=== PATIENT | male | born 1990 | race Asian ===

== ENCOUNTER 2016-04-03 18:13 | Emergency (ER) | payer SELFPAY ==
[~2016-04-03] VITALS: Ht 162.6 cm; Wt 56.7 kg
[2016-04-03 18:36] VITALS: BP 139/92
[2016-04-03 19:13] LABS: BASOPHILS % (AUTO) 1.4 % (0.0-2.0); EOSINOPHILS % (AUTO) 0.7 % (0.0-3.0); LYMPHOCYTES % (AUTO) 25.5 % (20.0-45.0); MEAN CORPUSCULAR HEMOGLOBIN 31.5 PG (27.0-31.0); MEAN CORPUSCULAR HGB CONC 32.5 G/DL (32.0-36.0); MEAN CORPUSCULAR VOLUME 97 FL (80-99); MEAN PLATELET VOLUME 5.1 FL (6.5-10.1); MONOCYTES % (AUTO) 8.5 % (1.0-10.0); NEUTROPHILS % (AUTO) 63.9 % (45.0-75.0); PLATELET COUNT 349 K/UL (150-450); RED BLOOD COUNT 5.11 M/UL (4.70-6.10); RED CELL DISTRIBUTION WIDTH 12.9 % (11.6-14.8); WHITE BLOOD COUNT 8.7 K/UL (4.8-10.8)
[2016-04-03 19:20] LABS: ACETAMINOPHEN < 10 ug/mL (10-30); ALANINE AMINOTRANSFERASE 35 U/L (3-41); ALBUMIN/GLOBULIN RATIO 1.3 (1.0-2.7); ANION GAP 20 (5-15); ASPARTATE AMINO TRANSFERASE 49 U/L (5-40); CALCIUM 9.1 mg/dL (8.6-10.2); CARBON DIOXIDE 24 mEQ/L (20-30); CHLORIDE 99 mEQ/L (98-107); CREATININE 0.7 mg/dL (0.7-1.2); GLOMERULAR FILTRATION RATE > 60 mL/min (>60); HEMOLYSIS 16; SODIUM 143 mEQ/L (135-145); TOTAL PROTEIN 7.9 g/dL (6.6-8.7)
[2016-04-03 19:25] LABS: ALCOHOL > 476 mg/dL
--- NOTE | 2016-04-03 19:44 | Emergency Room Report ---
History of Present Illness General Chief Complaint: Alcohol Intoxication Source: EMS Present Illness HPI Pt. presents to the ED with ALOC, only responsive to sternal rub. hx of alcoholism per family. obvious signs of trauma to the right side of head w. contusion. Per family at bedside pt. takes naltrexone for alcoholism, and she found him on floor in his office at home with wine bottle near by, no other bottles, no hx of SI. HPI and ROS are limited due to pt. mental status. Allergies: Coded Allergies: UNABLE TO ASSESS (Unverified , 04/03/16) Patient History Limited by: other - mental status/ intoxicated Past Medical History: see triage record, other - alcoholism Past Surgical History: none Pertinent Family History: none Reviewed Nursing Documentation: PMH: Agreed, PSxH: Agreed Nursing Documentation-PMH Past Medical History: No History, Except For History Of Psychiatric Problem: Yes - DEPRESSION, ETOH ABUSE Review of Systems All Other Systems: negative except mentioned in HPI Physical Exam Vital Signs Date Time Temp Pulse Resp B/P Pulse Ox O2 Delivery O2 Flow Rate FiO2 04/03/16 18:02 109 16 136/91 99 Room Air Sp02 EP Interpretation: reviewed, normal General Appearance: lethargic Eyes: bilateral eye PERRL ENT: normal ENT inspection, TMs + canals normal Respiratory: chest non-tender, lungs clear, normal breath sounds, no rhonchi, no respiratory distress, no retraction, no accessory muscle use, no wheezing, speaking full sentences Cardiovascular #1: regular rate, rhythm, no edema, normal capillary refill Cardiovascular #2: 3+ radial (R), 3+ radial (L), 3+ dorsalis pedis (R), 3+ dorsalis pedis (L) Gastrointestinal: normal bowel sounds, non tender, no mass, no organomegaly, no bruit, non-distended, no guarding Skin: normal color, no rash, warm/dry, well hydrated Medical Decision Making PA Attestation Dr. Ordaz is my supervising Physician whom patient management has been discussed with. Diagnostic Impression: Primary Impression: Acute alcoholic intoxication Qualified Codes: F10.120 - Alcohol abuse with intoxication, uncomplicated ER Course Pt. presents to the ED with ALOC, only responsive to sternal rub. hx of alcoholism per family. obvious signs of trauma to the right side of head w. contusion Ddx considered but are not limited to ETOH, Trauma, Syncope, dementia, OD Vital signs: are WNL, pt. is afebrile H&PE are most consistent with ETOH abuse ORDERS: -CBC: unremarkable -CMP: elevated AST -Lipase: 66 WNL - Serum ETOH: 476 - Salicylates: WNL - Tylenol: WNL UDS: Negative -CT head No contrast: No evidence of acute fracture, hemorrhage, or intracranial process Per: Official radiology report. ED INTERVENTIONS: -1000 NS Bolus -100mg Thiamine - Observance while he detoxifies. Pt. was allowed to sleep/rest. PT. became awake and alert x 3 , Pt is clinically sober, and has family bedside willing to drive him home and continue observance. DISCHARGE: At this time pt. is stable for d/c to home. Will provide printed patient care instructions, and any necessary prescriptions. Care plan and follow up instructions have been discussed with the patient prior to discharge. Labs Test 04/03/16 18:50 04/03/16 20:30 White Blood Count 8.7 K/UL (4.8-10.8) Red Blood Count 5.11 M/UL (4.70-6.10) Hemoglobin 16.1 G/DL (14.2-18.0) Hematocrit 49.6 % (42.0-52.0) Mean Corpuscular Volume 97 FL (80-99) Mean Corpuscular Hemoglobin 31.5 PG (27.0-31.0) Mean Corpuscular Hemoglobin Concent 32.5 G/DL (32.0-36.0) Red Cell Distribution Width 12.9 % (11.6-14.8) Platelet Count 349 K/UL (150-450) Mean Platelet Volume 5.1 FL (6.5-10.1) Neutrophils (%) (Auto) 63.9 % (45.0-75.0) Lymphocytes (%) (Auto) 25.5 % (20.0-45.0) Monocytes (%) (Auto) 8.5 % (1.0-10.0) Eosinophils (%) (Auto) 0.7 % (0.0-3.0) Basophils (%) (Auto) 1.4 % (0.0-2.0) Sodium Level 143 mEQ/L (135-145) Potassium Level 4.0 mEQ/L (3.4-4.9) Chloride Level 99 mEQ/L (98-107) Carbon Dioxide Level 24 mEQ/L (20-30) Anion Gap 20 (5-15) Blood Urea Nitrogen 5 mg/dL (7-23) Creatinine 0.7 mg/dL (0.7-1.2) Estimat Glomerular Filtration Rate > 60 mL/min (>60) Glucose Level 102 mg/dL (74-106) Calcium Level 9.1 mg/dL (8.6-10.2) Total Bilirubin 0.3 mg/dL (0.0-1.2) Aspartate Amino Transf (AST/SGOT) 49 U/L (5-40) Alanine Aminotransferase (ALT/SGPT) 35 U/L (3-41) Alkaline Phosphatase 52 U/L (40-129) Total Protein 7.9 g/dL (6.6-8.7) Albumin 4.5 g/dL (3.5-5.2) Globulin 3.4 g/dL Albumin/Globulin Ratio 1.3 (1.0-2.7) Lipase 66 U/L (< 60) Salicylates Level < 1 mg/dL (10-30) Acetaminophen Level < 10 ug/mL (10-30) Serum Alcohol > 476 mg/dL Last Vital Signs Date Time Temp Pulse Resp B/P Pulse Ox O2 Delivery O2 Flow Rate FiO2 04/03/16 18:36 104 15 139/92 98 Room Air Disposition: HOME, SELF-CARE Condition: Stable Patient Instructions: Alcohol Abuse and Nutrition, Alcohol Use Disorder, Alcohol Intoxication, [id number] Additional Instructions: Take previously prescribed medications as directed. Follow up with PCP in 48 hours Return sooner to ED if new symptoms occur, or current symptoms become worse. Do not drink alcohol Payal Lomeli Apr 03, 2016 19:44
[2016-04-03] MEDS ORDERED: Thiamine HCl 100 MG in D5W 50 ML IVPB SCH (20:00)
[2016-04-03 21:13] VITALS: BP 138/89
[2016-04-03] MEDS ORDERED: Thiamine HCl 100mg/ml Inj ONE (21:27)
[2016-04-03] MEDS ORDERED: Thiamine HCl 100 MG in D5W 50 ML IVPB ONE (21:45)
[2016-04-03 22:25] VITALS: BP 138/89
--- NOTE | 2016-04-10 10:29 | Diagnostic Imaging Report ---
Indication: Altered level of consciousness Technique: Continuous helical CT scanning of the head was performed without intravenous contrast material. Axial and coronal 5 mm sections were generated. Radiation dose was minimized using automated exposure control Dose: Total Dose Length Product - DLP [address] Dose Index - CTDIvol(s) 70.38 mGy. Comparison: None Findings: The ventricular system is normal in size and configuration. There is no shift of midline structures. No abnormal extra-axial fluid collections are noted. There is no evidence of intracerebral bleeding. No other abnormal high or low density areas are noted within the brain. Impression: Normal CT scan of the head without contrast material. This agrees with the preliminary interpretation provided overnight by [facility] teleradiology service. The CT scanner at [facility] is accredited by the [employer] and the scans are performed using protocols designed to limit radiation exposure to as low as reasonably achievable to attain images of sufficient resolution adequate for diagnostic evaluation.
[2016-06-16] MEDS ORDERED: BUSPAR10 MG ORAL (20:51)
[2016-06-16] MEDS ORDERED: VENLAFAXINE HCL25 MG ORAL (20:51)
[2016-06-16] MEDS ORDERED: GABAPENTIN100 MG ORAL (20:51)
== END 2016-04-03 22:25 | disposition home or self-care (01) ==
LOC: EDBD 18:13 → EMR 22:20
DX: F10.129 Alcohol abuse with intoxication, unspecified (principal); F32.9 Major depressive disorder, single episode, unspecified; S00.93XA Contusion of unspecified part of head, initial encounter; W19.XXXA Unspecified fall, initial encounter; Y92.018 Other place in single-family (private) house as the place of occurrence of the external cause; R41.82 Altered mental status, unspecified
CPT/HCPCS: 36415; 70450; 80053; 80300; 83690; 85025; 96374; 99284; G0480; 80329

== ENCOUNTER 2016-06-16 20:53 | Inpatient (IN) | payer BC ==
[~2016-06-16] VITALS: Ht 165.1 cm; Wt 59.0 kg
[~2016-06-16 20:53] MED LIST: BUSPAR10 MG ORAL; GABAPENTIN100 MG ORAL; VENLAFAXINE HCL25 MG ORAL
[2016-06-16] MEDS ORDERED: Thiamine HCl 100 MG in D5W 55 ML IVPB SCH (21:00)
[2016-06-16] MEDS ORDERED: LORazepam Inj 2mg/ml 1ml IV ONE ×2 (21:00→22:00)
--- NOTE | 2016-06-16 21:00 | Emergency Room Report ---
History of Present Illness General Chief Complaint: Seizure Source: Patient, Family Member, EMS Present Illness HPI Patient presents after having a seizure. He is in withdrawal from alcohol. He says it appeared last night but also claimed to be sober since April. He is given a seizure before. Denies any headache or body pain at this time. He does have the shakes. Accu-Chek in the field was normal. He reports sobriety but mother states he was drinking whiskey yesterday. No NVD. No vomit blood, melena. Tremor and weakness. Bit tongue. Also has swelling R side of face. States prior AA but sponsor relapsed. No recent AA. Patient also c/o depression. Denies SI to me. Mother states he is severely depressed. Allergies: Coded Allergies: No Known Allergies (Unverified , 06/16/16) UNABLE TO ASSESS (Unverified , 04/03/16) Patient History Past Medical History: see triage record Social History: Reports: alcohol use Social History Narrative with Mother Reviewed Nursing Documentation: PMH: Agreed, PSxH: Agreed Nursing Documentation-PMH Past Medical History: No History, Except For Review of Systems All Other Systems: negative except mentioned in HPI Physical Exam Vital Signs Date Time Temp Pulse Resp B/P Pulse Ox O2 Delivery O2 Flow Rate FiO2 06/16/16 20:45 99.3 141 16 160/100 100 Room Air Sp02 EP Interpretation: reviewed, normal General Appearance: no apparent distress, GCS 15, thin, other - weak and tremulous, Chronically Ill Head: normocephalic, atraumatic Eyes: bilateral eye PERRL, bilateral eye Scleral Injection ENT: moist mucus membranes - tongue maceration L, other - parotid swelling R with some tenderness Neck: supple Respiratory: chest non-tender, lungs clear, normal breath sounds Cardiovascular #1: regular rate, rhythm Cardiovascular #2: 2+ radial (R) Gastrointestinal: normal inspection, normal bowel sounds, non tender, no mass, non-distended Musculoskeletal: back normal, gait/station normal, normal range of motion Neurologic: alert, oriented x3, DTRs symmetric, sensory intact, cerebellar normal, speech normal, motor weakness - but more generalized with tremor Psychiatric: anxious Skin: normal inspection, warm/dry, other - plethoric Medical Decision Making Diagnostic Impression: Primary Impression: New onset seizure Additional Impressions: Alcohol withdrawal Qualified Codes: F10.239 - Alcohol dependence with withdrawal, unspecified Depression Qualified Codes: F32.9 - Major depressive disorder, single episode, unspecified ER Course Patient presents with new onset seizure and h/o alcohol abuse. Ddx: withdrawal seizure, withdrawal syndrome, electrolyte imbalance, bleed amongst others. Patient appears withdrawing at this time and needs both evaluation for seizure and alcohol withdrawal, possible early DTs. Labs, EKG, CXR, CT ordered. IV hydration, thiamine, ativan ordered. After the patient received Ativan he had a second seizure. This generalized tonoclonic. In short postictal period. Because of this the patient was loaded with a febrile and the patient will be admitted for observation and further evaluation by neurologist. Still with weakness, hardly able to sit on gurney on own - very tremulous. Concern over risk of DTs. Patient not reliable historian regarding alcohol intake. Admit tele Dr. Quigley. Still tachycardic. Second bolus given and more ativan. Tylenol given for some throat pain. Patient improved with second dose of ativan also improved with tylenol. Laboratory Tests Test 06/16/16 21:34 06/17/16 01:50 White Blood Count 4.8 K/UL (4.8-10.8) Red Blood Count 3.95 M/UL (4.70-6.10) L Hemoglobin 12.4 G/DL (14.2-18.0) L Hematocrit 37.6 % (42.0-52.0) L Mean Corpuscular Volume 95 FL (80-99) Mean Corpuscular Hemoglobin 31.3 PG (27.0-31.0) H Mean Corpuscular Hemoglobin Concent 33.0 G/DL (32.0-36.0) Red Cell Distribution Width 15.6 % (11.6-14.8) H Platelet Count 125 K/UL (150-450) L Mean Platelet Volume 6.2 FL (6.5-10.1) L Neutrophils (%) (Auto) 71.1 % (45.0-75.0) Lymphocytes (%) (Auto) 8.8 % (20.0-45.0) L Monocytes (%) (Auto) 17.1 % (1.0-10.0) H Eosinophils (%) (Auto) 0.2 % (0.0-3.0) Basophils (%) (Auto) 2.7 % (0.0-2.0) H Sodium Level 131 mEQ/L (135-145) L Potassium Level 4.0 mEQ/L (3.4-4.9) Chloride Level 84 mEQ/L (98-107) L Carbon Dioxide Level 22 mEQ/L (20-30) Anion Gap 25 (5-15) H Blood Urea Nitrogen 7 mg/dL (7-23) Creatinine 0.8 mg/dL (0.7-1.2) Estimate Glomerular Filtration Rate > 60 mL/min (>60) Glucose Level 104 mg/dL (74-106) Calcium Level 10.4 mg/dL (8.6-10.2) H Total Bilirubin 0.8 mg/dL (0.0-1.2) Aspartate Amino Transferase (AST) 106 U/L (5-40) H Alanine Aminotransferase (ALT) 133 U/L (3-41) H Alkaline Phosphatase 56 U/L (40-129) Total Creatine Kinase 238 U/L (38-174) H Total Protein 7.8 g/dL (6.6-8.7) Albumin 4.9 g/dL (3.5-5.2) Globulin 2.9 g/dL Albumin/Globulin Ratio 1.6 (1.0-2.7) Acetaminophen Level < 10 ug/mL (10-30) L Serum Alcohol < 10 mg/dL Urine Color Pale yellow Urine Appearance Clear Urine pH 8 (4.5-8.0) Urine Specific [place] 1.010 (1.005-1.035) Urine Protein 2+ (NEGATIVE) H Urine Glucose (UA) Negative (NEGATIVE) Urine Ketones Negative (NEGATIVE) Urine Occult Blood 4+ (NEGATIVE) H Urine Nitrite Negative (NEGATIVE) Urine Bilirubin Negative (NEGATIVE) Urine Urobilinogen Normal MG/DL (0.0-1.0) Urine Leukocyte Esterase Negative (NEGATIVE) Urine RBC 0-2 /HPF (0 - 0) H Urine WBC 0-2 /HPF (0 - 0) Urine Squamous Epithelial Cells Occasional /LPF Urine Bacteria Occasional /HPF (NONE) Urine Opiates Screen Negative (NEGATIVE) Urine Barbiturates Screen Negative (NEGATIVE) Phencyclidine (PCP) Screen Negative (NEGATIVE) Urine Amphetamines Screen Negative (NEGATIVE) Urine Benzodiazepines Screen Negative (NEGATIVE) Urine Cocaine Screen Negative (NEGATIVE) Urine Marijuana (THC) Screen Negative (NEGATIVE) EKG Diagnostic Results Rate: tachycardiac ST Segments: no acute changes Rhythm Strip Diag. Results EP Interpretation: yes Rhythm: no PVC's, no ectopy, other - ST 137 Chest X-Ray Diagnostic Results EP Interpretation: Yes Findings: no consolidation, no effusion, no pneumothorax Number of Views: 1 CT/MRI/US Diagnostic Results CT/MRI/US Diagnostic Results : Imaging Test Ordered: head Impression nl brain, bones and ST Last Vital Signs Date Time Temp Pulse Resp B/P Pulse Ox O2 Delivery O2 Flow Rate FiO2 06/17/16 01:46 123 19 137/92 97 Room Air 06/16/16 22:41 99.1 Status: improved Disposition: ADMITTED INPATIENT Condition: Serious Som Padron M.D. Jun 16, 2016 21:00
[2016-06-16] MEDS ORDERED: Thiamine HCl 100mg/ml Inj ONE (21:42)
[2016-06-16] MEDS ORDERED: levETIRAcetam 500 MG in D5W 110 ML IVPB ONE (22:00)
[2016-06-16 22:02] LABS: ACETAMINOPHEN < 10 ug/mL (10-30); ALANINE AMINOTRANSFERASE 133 U/L (3-41); ALBUMIN/GLOBULIN RATIO 1.6 (1.0-2.7); ALCOHOL < 10 mg/dL; ANION GAP 25 (5-15); ASPARTATE AMINO TRANSFERASE 106 U/L (5-40); CALCIUM 10.4 mg/dL (8.6-10.2); CARBON DIOXIDE 22 mEQ/L (20-30); CHLORIDE 84 mEQ/L (98-107); CREATININE 0.8 mg/dL (0.7-1.2); GLOMERULAR FILTRATION RATE > 60 mL/min (>60); HEMOLYSIS 4; SODIUM 131 mEQ/L (135-145); TOTAL PROTEIN 7.8 g/dL (6.6-8.7)
[2016-06-16 22:10] LABS: BASOPHILS % (AUTO) 2.7 % (0.0-2.0); EOSINOPHILS % (AUTO) 0.2 % (0.0-3.0); LYMPHOCYTES % (AUTO) 8.8 % (20.0-45.0); MEAN CORPUSCULAR HEMOGLOBIN 31.3 PG (27.0-31.0); MEAN CORPUSCULAR VOLUME 95 FL (80-99); MEAN PLATELET VOLUME 6.2 FL (6.5-10.1); MONOCYTES % (AUTO) 17.1 % (1.0-10.0); NEUTROPHILS % (AUTO) 71.1 % (45.0-75.0); PLATELET COUNT 125 K/UL (150-450); RED BLOOD COUNT 3.95 M/UL (4.70-6.10); RED CELL DISTRIBUTION WIDTH 15.6 % (11.6-14.8); WHITE BLOOD COUNT 4.8 K/UL (4.8-10.8)
[2016-06-16] MEDS ORDERED: levETIRAcetam 500mg vial IV ONE (22:23)
[2016-06-16 22:41] VITALS: BP 154/98
[2016-06-16 23:23] VITALS: BP 150/87
[2016-06-17] VITALS (8 sets, daily range): BP systolic 126–159; BP diastolic 81–107
[2016-06-17 02:07] LABS: APPEARANCE,URINE CLEAR; KETONES,URINE NEGATIVE (NEGATIVE); LEUKOCYTE ESTERASE ,URINE NEGATIVE (NEGATIVE); NITRITE,URINE NEGATIVE (NEGATIVE); PH,URINE 8 (4.5-8.0); PROTEIN,URINE 2+ (NEGATIVE); UROBILINOGEN,URINE NORMAL MG/DL (0.0-1.0)
[2016-06-17 03:28] LABS: BACTERIA,URINE OCCASIONAL /HPF; RBC,URINE 0-2 /HPF (0 - 0); SQUAMOUS EPITHELIAL CELL,UR OCCASIONAL /LPF (NONE/OCC); WBC,URINE 0-2 /HPF (0 - 0)
[2016-06-17] MEDS ORDERED: LORazepam Inj 2mg/ml 1ml IV ONE (04:30)
--- NOTE | 2016-06-17 09:08 | Diagnostic Imaging Report ---
Indication: Seizure Technique: Continuous helical CT scanning of the head was performed without intravenous contrast material. Axial and coronal 5 mm sections were generated. Radiation dose was minimized using automated exposure control Dose: Total Dose Length Product - DLP [address] Dose Index - CTDIvol(s) 70 mGy. Comparison: 04/03/2016 Findings: The ventricular system is normal in size and configuration. There is no shift of midline structures. No abnormal extra-axial fluid collections are noted. There is no evidence of intracerebral bleeding. No other abnormal high or low density areas are noted within the brain. Patent cavum septum pellucidum. No significant interim change Impression: Normal CT scan of the head without contrast material. This agrees with the preliminary interpretation provided overnight by Dr. Underwood The CT scanner at [facility] is accredited by the [employer] and the scans are performed using protocols designed to limit radiation exposure to as low as reasonably achievable to attain images of sufficient resolution adequate for diagnostic evaluation.
--- NOTE | 2016-06-17 11:58 | Diagnostic Imaging Report ---
Indication: Chest pain Technique: One view of the chest Comparison: none Findings: Lungs and pleural spaces are clear. Heart size is normal. Impression: No acute process
[2016-06-17] MEDS ORDERED: Miralax 17gm pkt ORAL PRN (14:00)
[2016-06-17] MEDS ORDERED: Milk of Magnesia 30ml Ud ORAL PRN (14:00)
[2016-06-17] MEDS ORDERED: LORazepam Inj 2mg/ml 1ml IV PRN ×2 (14:00→18:00)
--- NOTE | 2016-06-17 14:53 | History & Physical ---
History and Physical History & Physicial Dictated for Int Med-Dr Quigley no. [id number]. LORI RAMIREZ Jun 17, 2016 14:53
--- NOTE | 2016-06-17 15:01 | Consultation ---
Consult Note Consult Note NEUROLOGY CONSULTATION: Full note dictated #[id number] 26 y/o, RH, EI M who has had depression since his teens and has been using alcohol since he was in his early 20s. Was drinking 750 ml of Whiskey daily for weeks. On 06/15/16 had his last drink. Then started to feel tremulous and had a feeling he was withdrawing. On 06/16/16 was noted to have a GTC seizure Was brought to [facility] by paramedics and had a second GTC seizure in ER. ON EXAM: Normal except for swollen right cheek, bitten tongue and globally diminished reflexes. CT of brain Normal. IMPRESSION: Alcohol withdrawal seizures. Alcohol withdrawal syndrome with tremulousness, diaphoresis, and anxiety. Depression. REC: Rx of alcohol withdrawal as per Drs. Radford & Dann EEG No anticonvulsant at this time. Observe in hospital. Genie Davies M.D., M.S.P.[place]renna. GENIE DAVIES Jun 17, 2016 15:01
[2016-06-17] MEDS: D5 1/2NS w/KCl 20mEq 1,000 ML IV SCH (16:27)
[2016-06-17] MEDS ORDERED: Venlafaxine 25mg tab ORAL SCH ×2 (18:00)
[2016-06-17] MEDS: BusPIRone 10mg Tab ORAL SCH (19:15)
[2016-06-17] MEDS: Venlafaxine XR 75mg cap ORAL SCH (20:48)
--- NOTE | 2016-06-17 20:48 | History and Physical Report ---
DATE OF ADMISSION: 06/16/2016 CHIEF COMPLAINT: The patient is a 26-year-old male who presents with chief complaint of seizure. HISTORY OF PRESENT ILLNESS: The patient has a history of alcohol dependence. The patient states he has never had a seizure before. The patient was admitted to rehabilitation in [place] in 2013. The patient states his longest sobriety was three months. The patient currently drinks one 750 mL bottle of whiskey daily. The patient last drank on June 16, 2016. The patient stopped drinking abruptly on June 16. The patient suffered a witnessed seizure by his mother. The patient was transported to [facility] via EMS. The patient had another seizure while in the emergency room. The patient was admitted for new-onset seizures to rule out seizure disorder versus alcohol withdrawal seizure. REVIEW OF SYSTEMS: Constitutional: The patient denies weight loss or weight gain. The patient denies fevers or chills. HEENT: The patient denies ear or throat pain. Cardiovascular: The patient denies palpitations or chest pain. Chest: The patient denies wheeze or shortness of breath. Abdomen: The patient denies nausea, vomiting, diarrhea, or constipation. Genitourinary: The patient denies dysuria or increased frequency of urination. Neuromuscular: The patient complains of seizure as above. The patient denies generalized weakness. PAST MEDICAL HISTORY: Significant for, 1. Depression. 2. Anxiety. PAST SURGICAL HISTORY: The patient denies. CURRENT MEDICATIONS: Effexor 225 mg one tablet p.o. daily and buspirone 15 mg one tablet p.o. three times daily. 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 The patient admits to tobacco use one-half pack per day. The patient admits to alcohol use as above. The patient denies other drug abuse. PHYSICAL EXAMINATION: VITAL SIGNS: Temperature 99.1, respirations 13, pulse 88, and blood pressure 137/87. GENERAL: The patient is a well-developed and well-nourished, thin appearing male, who is extremely tremulous. HEENT: Eyes, pupils are equal and responsive to light and accommodation. Extraocular movements are intact. The patient does have notable nystagmus. CARDIOVASCULAR: Tachycardic, regular rhythm. S1 and S2 normal without murmurs, rubs, or gallops. CHEST: Lungs are clear to auscultation bilaterally without wheezes or rales. ABDOMEN: Soft, nontender, and nondistended. Positive bowel sounds. No evidence of hepatosplenomegaly. Currently, no rebound or guarding. EXTREMITIES: Negative for clubbing, cyanosis, or edema. RECTAL/GENITAL: Refused. NEUROLOGICAL: The patient has tremors as above. The patient is diaphoretic. Deep tendon reflexes are 2+ plantar. LABORATORY STUDIES: WBC 4.8, hemoglobin 12.4, hematocrit 37.6, and platelets 125,000. Sodium 131, potassium 4.0, chloride 84, CO2 22, BUN 7, and creatinine 0.8. Glucose 104. Liver function tests elevated with an AST of 106, ALT of 133. Total CPK elevated at 238. CT scan of the brain was reported as no acute bleed or infarct. Chest x-ray was within normal limits. An EKG demonstrated sinus tachycardia, approximately 135 beats per minute with no acute ST changes or Q-waves noted. ASSESSMENT: This is a 26-year-old male: 1. New-onset seizure. 2. Alcohol abuse. 3. Sinus tachycardia. 4. Elevated liver function tests. 5. Rhabdomyolysis. TREATMENT: 1. Seizure disorder. This is probably secondary to alcohol withdrawal seizure. Neurology consultation was obtained with Dr. Nasir Mayen. The patient has been started empirically on Neurontin 300 mg one tablet p.o. three times daily. 2. Alcohol abuse/withdrawal. The patient has been placed on a protocol using Valium and Neurontin for seizure precautions. This will be slowly tapered during hospitalization. 3. Sinus tachycardia. 4. Elevated liver function tests is probably secondary to chronic alcoholism. 5. Rhabdomyolysis is probably secondary to acute dehydration. The patient is currently receiving intravenous fluids. 6. Depression. Continue Effexor as above. 7. Anxiety. Continue BuSpar as above. Juan M Radford M.D. DR: SANGEETHA JOB#: [id number] CC:
--- NOTE | 2016-06-17 22:28 | Consultation ---
DATE OF CONSULTATION: 06/17/2016 NEUROLOGY CONSULTATION CONSULTING PHYSICIAN: Nasir Mayen M.D. REQUESTING PHYSICIANS: Lee Quigley M.D. & Juan M Radford M.D. HISTORY: Mr. Roman Hussein is a 26-year-old, right-handed, [place] gentleman of [place] origin, who has had depression since his teens and has been using alcohol liberally since he was in his early 20s. His latest bout of drinking started a few weeks ago and he has been drinking 750 mL of whiskey every day. He had his last drink on 06/15/2016 and later on that day he started to feel tremulous and was feeling that he was withdrawing. On 06/16/2016, he was noted to have a generalized tonic-clonic seizure by his mother. The paramedics were called in and he was brought into [facility] emergency room by paramedics. While in the emergency room, he had a second generalized tonic-clonic seizure. He has been seizure-free since then but feels quite anxious, tremulous and still feels that he is withdrawing from alcohol. He denies any weakness on one side or the other, numbness on one side or the other, problems with speech, problems with language, problems with vision, problems with memory, or any other neurological symptoms. He denies any prior history of seizures. He does however state that he has withdrawn from alcohol numerous times over the years. PAST MEDICAL HISTORY: Significant for depression for numerous years and alcoholism for numerous years. FAMILY HISTORY: His paternal grandfather was an alcoholic. There is no other family history of medical problems of seizures. PERSONAL HISTORY: Home: He lives alone in [place], but right now his mother is visiting from [place]. 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 Habits: He has been consuming large quantities of alcohol since he was in his early 20s. He also in the past used to use cannabinols. MEDICATIONS PRIOR TO ADMISSION: Present medications include Protonix, thiamine, folic acid, BuSpar, Neurontin, Effexor, lorazepam, Valium, Tylenol p.r.n., milk of magnesia p.r.n., MiraLax p.r.n., and Zofran p.r.n. He has also got 500 mg of Keppra in the emergency room. PHYSICAL EXAMINATION: GENERAL: He is a well-developed, well-nourished, [place] gentleman lying in bed, diaphoretic and tremulous. VITAL SIGNS: Pulse 101 per minute, blood pressure 137/81 mmHg, respirations 20 per minute, and temperature 98.4 degrees Fahrenheit. HEAD: Normocephalic and atraumatic. NECK: No neck rigidity was observed. EENT EXAMINATION: Benign except for a swollen right cheek. NEUROLOGICAL EXAMINATION: MENTAL STATUS EXAMINATION: He was alert and awake. He was oriented to person, place, and time. He was able to recall 3/3 words immediately after 1 minute and after 3 minutes. He was able to remember presidents Trump through Jayjay. His mathematical skills were good. His visuospatial function was preserved. SPEECH: He had no dysarthria. LANGUAGE: He had no aphasia. CRANIAL NERVE EXAMINATION: II: The visual blackmon were intact to confrontation testing. III, IV & : The external ocular movements were full and the pupils 3 mm in diameter, equal, round regular and reactive to light. V: He had normal facial sensations and the temporales, masseters, and pterygoids functioned normally. VII: He had normal facial expressions. He did have facial asymmetry related to swelling on the right side of the face. VIII: He was able to hear well bilaterally and had no nystagmus. IX: The palate moved symmetrically on phonation. X: He had no hoarseness of voice. XI: The sternocleidomastoids and trapezii functioned normally. XII: The tongue was in the midline without any fasciculations or atrophy, but he did have bite wick on his tongue. MOTOR SYSTEM: The tone was normal in all four extremities. Examination of muscle mass revealed no focal wasting. Examination of power revealed grade 5/5 power in all muscle groups tested. SENSORY EXAMINATION: He had intact sensations to pinprick, light touch, and graphesthesia. COORDINATION: He performed well on qpbwew-vs-vdbm and hjze-uk-jarc testing. Romberg test could not be performed because even with eyes open when he was made to stand with his feet together, he was quite unsteady. REFLEXES: 1+ and bilaterally symmetrical at the biceps, triceps, brachioradialis, and knees. Trace positive at both ankles. The plantar responses were flexor bilaterally. STANCE: He stood up with support on both sides. GAIT: He walked with support on both sides with a wide-based unsteady gait. ABNORMAL MOVEMENTS: Tremor (7-8 Hz): G 2/4 in both upper extremities. DIAGNOSTIC IMPRESSION: 1. Mr. Roman Hussein is a 26-year-old, right-handed, [place] gentleman of [place] origin, who does have a long history of anxiety and depression, and in addition has been abusing alcohol since he was in his early 20s. He was drinking 750 mL of whiskey daily for weeks and then stopped drinking on 06/15/2016. On 06/16/2016, he was noted to have a generalized tonic-clonic seizure. He was brought into the [facility] emergency room where he had a second generalized tonic-clonic seizure. He has also been tremulous, sweaty and had a feeling of being unwell at this point in time. 2. The neurological examination at this time is essentially normal but he does have a swollen right cheek, a bitten tongue and globally diminished reflexes. 3. The CT scan of the brain without contrast is normal. 4. Laboratory test revealed that he was mildly anemic with a hemoglobin of 12.4. His chemistry panel revealed an elevated CK at 238. His AST and ALT were both elevated. His toxicology screen was benign and his serum alcohol on admission was <10. His urinalysis was also benign. 5. The patient's history and neurological examination are most compatible with two alcohol-withdrawal seizures. 6. At this point in time, he is still withdrawing from alcohol, and has had an alcohol withdrawal syndrome, with tremulousness, diaphoresis and ongoing anxiety. 7. The patient does have a long history of depression, which is most probably compounding his alcoholism. RECOMMENDATIONS: 1. Agree with management thus far. 2. Treatment of alcohol withdrawal as per Dr. Radford and Dr. Quigley. 3. Aggressive treatment of depression. 4. An EEG will be ordered to evaluate the patient for a propensity to have seizures. 5. At this point in time, no antiseizure medicine will be started. 6. Depending on how the patient fares over the next day or so further recommendations will be given. Thank you for entrusting me with the care of Keenan Ko. I shall follow him with you. Nasir Mayen M.D., M.S.P.H. DR: LORA JOB#: [id number] MTDD
[2016-06-18 00:38] VITALS: BP 143/109
[2016-06-18] MEDS: D5 1/2NS w/KCl 20mEq 1,000 ML IV SCH ×4 (02:31→16:00)
[2016-06-18 04:14] VITALS: BP 135/97
[2016-06-18 08:00] VITALS: BP 154/95
[2016-06-18 08:25] LABS: EOSINOPHILS % (AUTO) 0.6 % (0.0-3.0); LYMPHOCYTES % (AUTO) 15.7 % (20.0-45.0); MEAN CORPUSCULAR HEMOGLOBIN 31.6 PG (27.0-31.0); MEAN CORPUSCULAR HGB CONC 33.3 G/DL (32.0-36.0); MEAN CORPUSCULAR VOLUME 95 FL (80-99); MEAN PLATELET VOLUME 8.2 FL (6.5-10.1); MONOCYTES % (AUTO) 15.1 % (1.0-10.0); NEUTROPHILS % (AUTO) 66.6 % (45.0-75.0); PLATELET COUNT 137 K/UL (150-450); RED BLOOD COUNT 4.59 M/UL (4.70-6.10); RED CELL DISTRIBUTION WIDTH 15.3 % (11.6-14.8)
[2016-06-18 08:37] LABS: PROTHROMBIN TIME 10.4 SEC (9.30-11.50)
[2016-06-18 08:56] LABS: ALANINE AMINOTRANSFERASE 123 U/L (3-41); ALBUMIN/GLOBULIN RATIO 1.6 (1.0-2.7); ANION GAP 23 (5-15); ASPARTATE AMINO TRANSFERASE 194 U/L (5-40); CALCIUM 9.4 mg/dL (8.6-10.2); CARBON DIOXIDE 19 mEQ/L (20-30); CHLORIDE 96 mEQ/L (98-107); CREATININE 0.7 mg/dL (0.7-1.2); GLOMERULAR FILTRATION RATE > 60 mL/min (>60); HEMOLYSIS 4; MAGNESIUM 2.1 mg/dL (1.7-2.5); POTASSIUM 3.5 mEQ/L (3.4-4.9); SODIUM 138 mEQ/L (135-145); TOTAL PROTEIN 7.7 g/dL (6.6-8.7)
[2016-06-18] MEDS: Thiamine 100mg tab ORAL SCH (09:06)
[2016-06-18] MEDS: Venlafaxine XR 75mg cap ORAL SCH (09:06)
[2016-06-18] MEDS: BusPIRone 10mg Tab ORAL SCH ×3 (09:07→18:00)
[2016-06-18 09:30] LABS: BILIRUBIN,DIRECT 0.2 mg/dL (0.1-0.3)
[2016-06-18] MEDS ORDERED: LORazepam Inj 2mg/ml 1ml IV ONE (10:00)
[2016-06-18] MEDS: chlordiazePOXIDE 25mg Cap ORAL SCH ×3 (11:00→11:53)
[2016-06-18 12:00] VITALS: BP 145/99
--- NOTE | 2016-06-18 14:58 | Neurology Progress Note ---
Interim History Interim History Interim History Mr. Jackson feels unwell. He is paranoid and delusional today. He is not very cooperative. He refused to talk to the psychiatrist. He is less tremulous. He is still sweaty. He denies any new neurologic symptoms. Review of Systems Neuro Review of Systems Benign. Objective Physical Exam Last Vital Signs Date Time Temp Pulse Resp B/P Pulse Ox O2 Delivery O2 Flow Rate FiO2 06/18/16 08:00 91 06/18/16 08:00 97.0 17 154/95 100 Room Air Laboratory Tests Test 06/18/16 05:25 White Blood Count 7.0 K/UL (4.8-10.8) Red Blood Count 4.59 M/UL (4.70-6.10) L Hemoglobin 14.5 G/DL (14.2-18.0) Hematocrit 43.6 % (42.0-52.0) Mean Corpuscular Volume 95 FL (80-99) Mean Corpuscular Hemoglobin 31.6 PG (27.0-31.0) H Mean Corpuscular Hemoglobin Concent 33.3 G/DL (32.0-36.0) Red Cell Distribution Width 15.3 % (11.6-14.8) H Platelet Count 137 K/UL (150-450) L Mean Platelet Volume 8.2 FL (6.5-10.1) Neutrophils (%) (Auto) 66.6 % (45.0-75.0) Lymphocytes (%) (Auto) 15.7 % (20.0-45.0) L Monocytes (%) (Auto) 15.1 % (1.0-10.0) H Eosinophils (%) (Auto) 0.6 % (0.0-3.0) Basophils (%) (Auto) 2.0 % (0.0-2.0) Prothrombin Time 10.4 SEC (9.30-11.50) Prothromb Time International Ratio 1.0 (0.9-1.1) Activated Partial Thromboplast Time 26 SEC (23-33) Sodium Level 138 mEQ/L (135-145) Potassium Level 3.5 mEQ/L (3.4-4.9) Chloride Level 96 mEQ/L (98-107) L Carbon Dioxide Level 19 mEQ/L (20-30) L Anion Gap 23 (5-15) H Blood Urea Nitrogen 5 mg/dL (7-23) L Creatinine 0.7 mg/dL (0.7-1.2) Estimat Glomerular Filtration Rate > 60 mL/min (>60) Glucose Level 86 mg/dL (74-106) Calcium Level 9.4 mg/dL (8.6-10.2) Phosphorus Level 2.0 mg/dL (2.5-4.8) L Magnesium Level 2.1 mg/dL (1.7-2.5) Total Bilirubin 1.3 mg/dL (0.0-1.2) H Direct Bilirubin 0.2 mg/dL (0.1-0.3) Aspartate Amino Transf (AST/SGOT) 194 U/L (5-40) H Alanine Aminotransferase (ALT/SGPT) 123 U/L (3-41) H Alkaline Phosphatase 56 U/L (40-129) Total Protein 7.7 g/dL (6.6-8.7) Albumin 4.8 g/dL (3.5-5.2) Globulin 2.9 g/dL Albumin/Globulin Ratio 1.6 (1.0-2.7) Neurologic Exam Objective PHYSICAL EXAMINATION: GENERAL: He is a well-developed, well-nourished, [place] gentleman sitting up at the edge of his bed, mild diaphoretic and mildly tremulous. HEAD: Normocephalic and atraumatic. NECK: No neck rigidity was observed. EENT EXAMINATION: Benign except for a swollen right cheek. NEUROLOGICAL EXAMINATION: MENTAL STATUS EXAMINATION: He was alert and awake. He was oriented to self and June 2016 only. He did not cooperate for further mental status tests. He was severely paranoid and delusional. SPEECH: He had no dysarthria. LANGUAGE: He had no aphasia. CRANIAL NERVE EXAMINATION: II: The visual blackmon were intact to confrontation testing. III, IV & : The external ocular movements were full and the pupils 3 mm in diameter, equal, round regular and reactive to light. V: He had normal facial sensations and the temporales, masseters, and pterygoids functioned normally. VII: He had normal facial expressions. He did have facial asymmetry related to swelling on the right side of the face. VIII: He was able to hear well bilaterally and had no nystagmus. IX: The palate moved symmetrically on phonation. X: He had no hoarseness of voice. XI: The sternocleidomastoids and trapezii functioned normally. XII: The tongue was in the midline without any fasciculations or atrophy, but he did have bite wick on his tongue. MOTOR SYSTEM: The tone was normal in all four extremities. Examination of muscle mass revealed no focal wasting. Examination of power revealed grade 5/5 power in all muscle groups tested. SENSORY EXAMINATION: He had intact sensations to pinprick, light touch, and graphesthesia. COORDINATION: He performed well on nlgftx-hh-xnkh and okil-rz-rala testing. REFLEXES: 1+ and bilaterally symmetrical at the biceps, triceps, brachioradialis , and knees. Trace positive at both ankles. The plantar responses were flexor bilaterally. STANCE: He stood up independently. GAIT: He walked well independently. ABNORMAL MOVEMENTS: Tremor (7-8 Hz): G 1/4 in both upper extremities. Impression/Recommendations Diagnostic Impression 1. Mr. Roman Hussein is a 26-year-old, right-handed, Citizen Of [place] gentleman of [place] origin, who does have a long history of anxiety and depression, and in addition has been abusing alcohol since he was in his early 20s. He was drinking 750 mL of whiskey daily for weeks and then stopped drinking on 2016. On 06/16/2016, he was noted to have a generalized tonic-clonic seizure. He was brought into the [facility] emergency room where he had a second generalized tonic-clonic seizure. He had also been tremulous, sweaty and had a feeling of being unwell following that. 2. He feels unwell today. He is paranoid, delusional and has been aggressive at times with his nurses. 3. The neurological examination at this time is essentially normal but he does have a swollen right cheek, a bitten tongue and globally diminished reflexes. He is also paranoid and delusional. 4. The CT scan of the brain without contrast is normal. 5. Laboratory test revealed that he was mildly anemic with a hemoglobin of 12.4. His chemistry panel revealed an elevated CK at 238. His AST and ALT were both elevated. His toxicology screen was benign and his serum alcohol on admission was <10. His urinalysis was also benign. 6. His EEG was normal in the awake and drowsy states but parts were marred by EMG, movement and electrode artifacts. 7. The patient's history and neurological examination are most compatible with two alcohol-withdrawal seizures. 8. At this point in time, he is still withdrawing from alcohol, and is exhibiting signs of delirium tremens. 9. The patient does have a long history of depression, which is most probably compounding his alcoholism. RECOMMENDATIONS: 1. Continue present management. 2. Treatment of alcohol withdrawal as per Dr. Radford and Dr. Quigley. 3. Aggressive treatment of depression. 4. No antiseizure medicine will be started. 5. Observe closely. Nasir Davies M.D., M.S.P.H. Recommendations 1. Continue present management. 2. Treatment of alcohol withdrawal as per Dr. Radford and Dr. Quigley. 3. Aggressive treatment of depression. 4. No antiseizure medicine will be started. 5. Observe closely. Nasir Davies M.D., M.S.P.H. NASIR DAVIES Jun 18, 2016 14:58
--- NOTE | 2016-06-18 16:19 | Internal Med Progress Note ---
Subjective Date of Service: Jun 18, 2016 Physician Name Juan M Ramirez Attending Physician Lee Quigley MD Current Medications Medications (Trade) Dose Ordered Sig/Calvin Route PRN Reason Start Time Stop Time Status Last Admin Dose Admin Acetaminophen (Tylenol) 650 mg Q4H PRN ORAL Mild Pain (Pain Scale 1-3) 06/17/16 14:00 07/17/16 13:59 Buspirone HCl 10 mg 10 mg THREE TIMES A DAY ORAL 06/17/16 18:00 07/17/16 17:59 06/18/16 09:07 Chlordiazepoxide (Librium) 25 mg Q8H ORAL 06/18/16 11:00 06/25/16 10:59 06/18/16 11:53 Clonidine HCl (Catapres) 0.1 mg Q6HR PRN ORAL For High Blood Pressure 06/17/16 20:00 07/17/16 19:59 Dextrose (Dextrose 50%) STAT PRN IV Hypoglycemia 06/17/16 14:00 07/17/16 13:59 Dextrose/ Electrolytes (D5 0.45%NS W/ KCl 20mEq) 1,000 ml @ 125 mls/hr Q8H IV 06/17/16 16:00 07/17/16 15:59 06/18/16 02:31 Diazepam (Valium) 10 mg Q3H PRN ORAL Restlessness 06/18/16 10:15 06/25/16 10:14 Folic Acid (Folate) 1 mg DAILY ORAL 06/18/16 09:00 07/18/16 08:59 06/18/16 09:07 Gabapentin (Neurontin) 100 mg Q8HR PRN ORAL For Pain 06/17/16 17:00 07/17/16 16:59 Lorazepam (Ativan 2mg/ml 1ml) 0.5 mg Q4H PRN IV For Seizures 06/17/16 18:00 06/24/16 17:59 Magnesium Hydroxide (Mom) 30 ml HSPRN PRN ORAL Constipation 06/17/16 14:00 07/17/16 13:59 Ondansetron HCl (Zofran) 4 mg Q6H PRN IVP Nausea & Vomiting 06/17/16 14:00 07/17/16 13:59 Pantoprazole (Protonix) 40 mg DAILY ORAL 06/18/16 09:00 07/18/16 08:59 06/18/16 09:06 Polyethylene Glycol (Miralax) 17 gm HSPRN PRN ORAL Constipation 06/17/16 14:00 07/17/16 13:59 Thiamine HCl (Vitamin B1) 100 mg DAILY ORAL 06/18/16 09:00 07/18/16 08:59 06/18/16 09:06 Venlafaxine HCl (Effexor-XR) 225 mg DAILY ORAL 06/17/16 19:45 07/17/16 19:44 06/18/16 09:06 Allergies: Coded Allergies: No Known Allergies (Unverified , 06/16/16) UNABLE TO ASSESS (Unverified , 04/03/16) ROS Limited/Unobtainable: No Constitutional: Reports: no symptoms HEENT: Reports: no symptoms Cardiovascular: Reports: no symptoms Respiratory: Reports: no symptoms Gastrointestinal/Abdominal: Reports: no symptoms Genitourinary: Reports: no symptoms Neurologic/Psychiatric: Reports: no symptoms Subjective 26 YO M admitted with alcohol withdrawl seizure. Cover for [facility] Med-Dr Quigley. More agitated today. 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, other - resting tremors Skin: other - diaphoretic Laboratory Tests Test 06/18/16 05:25 White Blood Count 7.0 K/UL (4.8-10.8) Red Blood Count 4.59 M/UL (4.70-6.10) L Hemoglobin 14.5 G/DL (14.2-18.0) Hematocrit 43.6 % (42.0-52.0) Mean Corpuscular Volume 95 FL (80-99) Mean Corpuscular Hemoglobin 31.6 PG (27.0-31.0) H Mean Corpuscular Hemoglobin Concent 33.3 G/DL (32.0-36.0) Red Cell Distribution Width 15.3 % (11.6-14.8) H Platelet Count 137 K/UL (150-450) L Mean Platelet Volume 8.2 FL (6.5-10.1) Neutrophils (%) (Auto) 66.6 % (45.0-75.0) Lymphocytes (%) (Auto) 15.7 % (20.0-45.0) L Monocytes (%) (Auto) 15.1 % (1.0-10.0) H Eosinophils (%) (Auto) 0.6 % (0.0-3.0) Basophils (%) (Auto) 2.0 % (0.0-2.0) Prothrombin Time 10.4 SEC (9.30-11.50) Prothromb Time International Ratio 1.0 (0.9-1.1) Activated Partial Thromboplast Time 26 SEC (23-33) Sodium Level 138 mEQ/L (135-145) Potassium Level 3.5 mEQ/L (3.4-4.9) Chloride Level 96 mEQ/L (98-107) L Carbon Dioxide Level 19 mEQ/L (20-30) L Anion Gap 23 (5-15) H Blood Urea Nitrogen 5 mg/dL (7-23) L Creatinine 0.7 mg/dL (0.7-1.2) Estimat Glomerular Filtration Rate > 60 mL/min (>60) Glucose Level 86 mg/dL (74-106) Calcium Level 9.4 mg/dL (8.6-10.2) Phosphorus Level 2.0 mg/dL (2.5-4.8) L Magnesium Level 2.1 mg/dL (1.7-2.5) Total Bilirubin 1.3 mg/dL (0.0-1.2) H Direct Bilirubin 0.2 mg/dL (0.1-0.3) Aspartate Amino Transf (AST/SGOT) 194 U/L (5-40) H Alanine Aminotransferase (ALT/SGPT) 123 U/L (3-41) H Alkaline Phosphatase 56 U/L (40-129) Total Protein 7.7 g/dL (6.6-8.7) Albumin 4.8 g/dL (3.5-5.2) Globulin 2.9 g/dL Albumin/Globulin Ratio 1.6 (1.0-2.7) Intake and Output 06/17/16 06/18/16 19:00 07:00 Intake Total 490 ml 1510 ml Output Total 700 ml Balance 490 ml 810 ml Intake Oral 240 ml 260 ml IV Total 250 ml 1250 ml Output Urine Total 700 ml Assessment/Plan Problem List: (1) Alcohol dependence Assessment & Plan: Acute withdrawl (2) Elevated liver function tests Assessment & Plan: Due to chronic alcoholism (3) Rhabdomyolysis Assessment & Plan: Cont IV fluid. (4) Anxiety (5) Alcohol withdrawal Assessment & Plan: Cont prn valium and neurontin for seizure precaution. (6) New onset seizure Assessment & Plan: See neurology note. Await EEG. Continue scheduled neurontin and IV ativan PRN for breakthrough seizure. (7) Depression Assessment & Plan: Patient refused psychiatric eval. Status: progressing JUAN M RAMIREZ Jun 18, 2016 16:19
[2016-06-18] MEDS ORDERED: Haloperidol 5mg/ml Inj IM ONE ×4 (17:00→17:15)
[2016-06-18] MEDS ORDERED: DiphenhydrAMINE 50mg/ml Inj IM ONE (17:00)
--- NOTE | 2016-06-18 20:38 | Consultation ---
DATE OF CONSULTATION: 06/18/2016 CHIEF COMPLAINT: Alcoholism and alcoholic seizure disorder. HISTORY OF PRESENT ILLNESS: At this time, the patient is very anxious. Most of the history per the chart and per the bedside and from the mother. This is a 26-year-old male with past medical history of alcoholism. He was in a rehabilitation in [place], now in relapse and drinking whiskey daily, came to the hospital with seizure most probably from alcoholic withdrawal. PAST MEDICAL HISTORY: 1. Depression. 2. Anxiety. 3. Alcoholism. ALLERGIES: No known drug allergies. MEDICATIONS: Please see medication reconciliation list. FAMILY HISTORY: Noncontributory. REVIEW OF SYSTEMS: Limited. PAST SURGICAL HISTORY: None. SOCIAL HISTORY: The patient drinks 1 bottle of whiskey daily. No alcohol. No IV drug abuse. PHYSICAL EXAMINATION: VITAL SIGNS: Temperature 98.3 degrees, pulse is 88, respirations 20, and blood pressure 124/97. HEENT: N/C and atraumatic. NECK: Supple. No adenopathy. CARDIOVASCULAR: Tachy. Regular rate. Plus S1 and S2. There is no bilaterally based on supine exam. ABDOMEN: Soft and nontender. No rebound. No guarding. EXTREMITIES: No cyanosis. No clubbing. No edema. LABORATORY DATA: Sodium 138, potassium 3.5, BUN is 5, creatinine is 0.7. Liver function tests, total bilirubin is 1.3. AST of 194. AST of 123, alkaline phosphatase of 56. ASSESSMENT AND PLAN: This is a young man 26-year-old with alcoholism and alcohol withdrawal seizures and also some evidence of tremor on resting. Our plan to follow abdominal ultrasound, repeat liver function tests for tomorrow. Hydrate the patient. Intravenous fluids. The patient is getting thiamine by mouth. We are going to start the patient on some Librium 25 mg every 8 hours. The patient already been seen by Neurology and did place on Ativan for as needed withdrawal seizures. We will follow up closely and monitor closely. Yoshi Santillan M.D. DR: Bucky JOB#: [id number] CC:
--- NOTE | 2016-06-18 20:48 | Electroencephalogram ---
ELECTROENCEPHALOGRAM REPORT DATE OF PROCEDURE: 06/17/2016 REQUESTING PHYSICIAN: Lee Quigley M.D. HISTORY: This EEG was performed on a 26-year-old gentleman who was noted to have a seizure at home and then a second seizure in the emergency room. It should be noted that he was withdrawing from alcohol when both the seizures occurred. The purpose of this EEG was to evaluate the patient for a propensity to have a seizure disorder. TECHNICAL NOTE: This EEG was performed on a [employer] with electrodes placed on the scalp according to the International 10-20 system. Oasso-up-cktnm and cwdpi-ex-mgw montages were used. The EEG was technically satisfactory and was performed in the awake and drowsy states. OBSERVATIONS: During wakefulness, the background activity consisted of 9-10 Hz posteriorly predominant well-developed alpha waveforms which attenuated on eye opening. Drowsiness was characterized by dissolution of the alpha rhythm and the appearance of slower frequencies in the 5-6 Hz theta range. Throughout the tracing, large amount of movement, electrode, and EMG, artifact was seen. Hyperventilation was performed for three minutes with an adequate effort and produced no abnormalities. Photic stimulation was performed at various different frequencies and produced no abnormalities. No focal abnormalities or epileptiform discharges were seen. IMPRESSION: Normal awake and drowsy EEG. Nasir Mayen M.D., M.S.P.H. DR: Pari JOB#: [id number] [facility]
[2016-06-18] MEDS ORDERED: LORazepam Inj 2mg/ml 1ml IV PRN (22:30)
[2016-06-18] MEDS ORDERED: Haloperidol 5mg/ml Inj IM PRN (22:30)
[2016-06-18] MEDS ORDERED: DiphenhydrAMINE 50mg/ml Inj IM PRN (22:30)
[2016-06-19] VITALS: BP 145/97
--- NOTE | 2016-06-19 01:48 | Consultation ---
DATE OF CONSULTATION: HISTORY OF PRESENT ILLNESS: This is a 26-year-old male with unknown past medical history, who has been admitted to the hospital due to seizure and in the hospital it was reported that the patient has a history of alcohol dependence. During the evaluation, the patient has been presenting with severe anxiety, agitation, being combative and aggressive towards the staff. He was uncooperative with me and he was delusional. He was unable to provide any history. Therefore, the history was gathered from family members including his mother. The patient has been started on Librium as well as Valium p.r.n. for alcohol withdrawal. He also has been started on thiamine and folic acid. He asked the disposition to leave and I gathered the evaluation from the mother. According to the mother, the patient has a history of schizophrenia and has been treated with antipsychotics as well as Effexor for depression. In the middle of the discussion with the mother, the patient came out of the room and asked me to leave. Later on I received a phone call from the nurse when the patient became very agitated and the security was called that he became very combative. PAST PSYCHIATRIC HISTORY: As per mother, he has a history of depression and psychotic disorder. PAST MEDICAL HISTORY: Besides seizure disorder, none. ALLERGIES: No known drug allergies. SUBSTANCE ABUSE HISTORY: Significant for alcohol dependence. He is also a smoker. 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 He is single. His son was involved in his life. MENTAL STATUS EXAMINATION: Alert and oriented x3. Mood is anxious and agitated. Affect is constricted. Congruent mood. Thought process is disorganized. Thought content, positive for persecutory delusions. Insight and judgment impaired. Cognition is impaired. ASSESSMENT: AXIS I Major depressive disorder, alcohol dependence, alcohol withdrawal. AXIS II Deferred. AXIS III Seizure. AXIS IV Low. AXIS V Global assessment of functioning is 20. PLAN: 1. The patient is on venlafaxine XR 225 mg, which will be continued. 2. He will be continued on thiamine and folic acid. 3. He will be continued on lorazepam p.r.n. 4. He will be continued on diazepam p.r.n. and Librium starting. 5. Discontinue the buspirone. 6. We will start the patient on risperidone 2 mg p.o. at bedtime. 7. If his combative behavior continues, we will start the patient on Haldol IM p.r.n. Nasreen Houser M.D. DR: MANNIE JOB#: [id number] CC:
[2016-06-19] MEDS: chlordiazePOXIDE 25mg Cap ORAL SCH ×2 (03:19→11:13)
[2016-06-19 04:00] VITALS: BP 137/88
[2016-06-19] MEDS ORDERED: LORazepam Inj 2mg/ml 1ml IM PRN (06:30)
[2016-06-19 07:13] LABS: BASOPHILS % (AUTO) 1.4 % (0.0-2.0); EOSINOPHILS % (AUTO) 1.2 % (0.0-3.0); LYMPHOCYTES % (AUTO) 19.7 % (20.0-45.0); MEAN CORPUSCULAR HEMOGLOBIN 31.2 PG (27.0-31.0); MEAN CORPUSCULAR HGB CONC 32.9 G/DL (32.0-36.0); MEAN CORPUSCULAR VOLUME 95 FL (80-99); MEAN PLATELET VOLUME 7.8 FL (6.5-10.1); MONOCYTES % (AUTO) 15.9 % (1.0-10.0); NEUTROPHILS % (AUTO) 61.9 % (45.0-75.0); PLATELET COUNT 151 K/UL (150-450); RED BLOOD COUNT 4.82 M/UL (4.70-6.10); RED CELL DISTRIBUTION WIDTH 15.2 % (11.6-14.8); WHITE BLOOD COUNT 7.2 K/UL (4.8-10.8)
[2016-06-19 07:16] LABS: ALANINE AMINOTRANSFERASE 135 U/L (3-41); ALBUMIN/GLOBULIN RATIO 1.4 (1.0-2.7); ANION GAP 26 (5-15); ASPARTATE AMINO TRANSFERASE 351 U/L (5-40); CALCIUM 9.4 mg/dL (8.6-10.2); CARBON DIOXIDE 18 mEQ/L (20-30); CHLORIDE 96 mEQ/L (98-107); CREATININE 0.9 mg/dL (0.7-1.2); GLOMERULAR FILTRATION RATE > 60 mL/min (>60); HEMOLYSIS 25; POTASSIUM 3.7 mEQ/L (3.4-4.9); SODIUM 140 mEQ/L (135-145); TOTAL PROTEIN 7.7 g/dL (6.6-8.7)
[2016-06-19 07:32] LABS: BILIRUBIN,DIRECT 0.3 mg/dL (0.1-0.3)
[2016-06-19 08:00] VITALS: BP 143/87
--- NOTE | 2016-06-19 09:33 | General Progress Note ---
Assessment/Plan Problem List: (1) New onset seizure ICD Codes: R56.9 - Unspecified convulsions SNOMED: 57350750 (2) Elevated liver function tests ICD Codes: R94.5 - Abnormal results of liver function studies SNOMED: 628910515 (3) Alcohol withdrawal ICD Codes: F10.239 - Alcohol dependence with withdrawal, unspecified SNOMED: 342034767 (4) Anxiety ICD Codes: F41.9 - Anxiety disorder, unspecified SNOMED: 62409493 Assessment/Plan fu lfts fu abd us start pentoxyphyline pschy eval Subjective ROS Limited/Unobtainable: Yes Allergies: Coded Allergies: No Known Allergies (Unverified , 06/16/16) UNABLE TO ASSESS (Unverified , 04/03/16) Subjective on restrain now Objective Last 24 Hour Vital Signs Date Time Temp Pulse Resp B/P Pulse Ox O2 Delivery O2 Flow Rate FiO2 06/19/16 04:00 85 06/19/16 04:00 98.2 107 16 137/88 100 Room Air 06/19/16 00:00 98.8 112 18 145/97 99 Room Air 06/19/16 00:00 85 06/18/16 12:00 96.7 98 16 145/99 99 Room Air Intake and Output 06/18/16 06/19/16 19:00 07:00 Intake Total 615 ml Output Total 100 ml Balance 615 ml -100 ml Intake Oral 240 ml IV Total 375 ml Output Urine Total 100 ml # Voids 1 Laboratory Tests 06/19/16 06:05: White Blood Count 7.2, Red Blood Count 4.82, Hemoglobin 15.0, Hematocrit 45.7, Mean Corpuscular Volume 95, Mean Corpuscular Hemoglobin 31.2H, Mean Corpuscular Hemoglobin Concent 32.9, Red Cell Distribution Width 15.2H, Platelet Count 151, Mean Platelet Volume 7.8, Neutrophils (%) (Auto) 61.9, Lymphocytes (%) (Auto) 19.7L, Monocytes (%) (Auto) 15.9H, Eosinophils (%) (Auto) 1.2, Basophils (%) ( Auto) 1.4, Sodium Level 140, Potassium Level 3.7, Chloride Level 96L, Carbon Dioxide Level 18L, Anion Gap 26H, Blood Urea Nitrogen 11, Creatinine 0.9, Estimat Glomerular Filtration Rate > 60, Glucose Level 59L, Calcium Level 9.4, Total Bilirubin 1.4H, Direct Bilirubin 0.3, Aspartate Amino Transf (AST/SGOT) 351H, Alanine Aminotransferase (ALT/SGPT) 135H, Alkaline Phosphatase 54, Total Protein 7.7, Albumin 4.6, Globulin 3.1, Albumin/Globulin Ratio 1.4 Height (Feet): 5 Height (Inches): 5.00 Weight (Pounds): 130 General Appearance: lethargic EENT: normal ENT inspection Neck: supple Cardiovascular: normal rate Respiratory/Chest: lungs clear Abdomen: normal bowel sounds, non tender, soft Extremities: non-tender IMTIAZ GALICIA Jun 19, 2016 09:33
[2016-06-19] MEDS: Venlafaxine XR 75mg cap ORAL SCH (09:54)
[2016-06-19] MEDS: Thiamine 100mg tab ORAL SCH (09:54)
[2016-06-19] MEDS: D5 1/2NS w/KCl 20mEq 1,000 ML IV SCH ×3 (09:55→16:00)
[2016-06-19] MEDS: DiphenhydrAMINE 50mg/ml Inj IM PRN ×2 (11:13→22:34)
[2016-06-19 12:00] VITALS: BP 142/40
--- NOTE | 2016-06-19 14:27 | Neurology Progress Note ---
Interim History Interim History Interim History Mr. Jackson feels better today. He is calm and behaving well now. As per his mother he has been paranoid and delusional at times. He is cooperative today. He is still tremulous. He is less sweaty. He denies any new neurologic symptoms. Review of Systems Neuro Review of Systems Benign. Objective Physical Exam Last Vital Signs Date Time Temp Pulse Resp B/P Pulse Ox O2 Delivery O2 Flow Rate FiO2 06/19/16 13:39 119/93 06/19/16 12:00 96.4 112 18 99 Room Air Laboratory Tests Test 06/19/16 06:05 White Blood Count 7.2 K/UL (4.8-10.8) Red Blood Count 4.82 M/UL (4.70-6.10) Hemoglobin 15.0 G/DL (14.2-18.0) Hematocrit 45.7 % (42.0-52.0) Mean Corpuscular Volume 95 FL (80-99) Mean Corpuscular Hemoglobin 31.2 PG (27.0-31.0) H Mean Corpuscular Hemoglobin Concent 32.9 G/DL (32.0-36.0) Red Cell Distribution Width 15.2 % (11.6-14.8) H Platelet Count 151 K/UL (150-450) Mean Platelet Volume 7.8 FL (6.5-10.1) Neutrophils (%) (Auto) 61.9 % (45.0-75.0) Lymphocytes (%) (Auto) 19.7 % (20.0-45.0) L Monocytes (%) (Auto) 15.9 % (1.0-10.0) H Eosinophils (%) (Auto) 1.2 % (0.0-3.0) Basophils (%) (Auto) 1.4 % (0.0-2.0) Sodium Level 140 mEQ/L (135-145) Potassium Level 3.7 mEQ/L (3.4-4.9) Chloride Level 96 mEQ/L (98-107) L Carbon Dioxide Level 18 mEQ/L (20-30) L Anion Gap 26 (5-15) H Blood Urea Nitrogen 11 mg/dL (7-23) Creatinine 0.9 mg/dL (0.7-1.2) Estimat Glomerular Filtration Rate > 60 mL/min (>60) Glucose Level 59 mg/dL (74-106) L Calcium Level 9.4 mg/dL (8.6-10.2) Total Bilirubin 1.4 mg/dL (0.0-1.2) H Direct Bilirubin 0.3 mg/dL (0.1-0.3) Aspartate Amino Transf (AST/SGOT) 351 U/L (5-40) H Alanine Aminotransferase (ALT/SGPT) 135 U/L (3-41) H Alkaline Phosphatase 54 U/L (40-129) Total Protein 7.7 g/dL (6.6-8.7) Albumin 4.6 g/dL (3.5-5.2) Globulin 3.1 g/dL Albumin/Globulin Ratio 1.4 (1.0-2.7) Neurologic Exam Objective PHYSICAL EXAMINATION: GENERAL: He is a well-developed, well-nourished, [place] gentleman lying in bed, mildly diaphoretic and mildly tremulous. HEAD: Normocephalic and atraumatic. NECK: No neck rigidity was observed. EENT EXAMINATION: Benign except for a swollen right cheek. NEUROLOGICAL EXAMINATION: MENTAL STATUS EXAMINATION: He was alert and awake. He was oriented to person, place, and time. He was able to recall 3/3 words immediately after 1 minute and after 3 minutes. He was able to remember presidents Trump through Jayjay. His mathematical skills were good. His visuospatial function was preserved. SPEECH: He had no dysarthria. LANGUAGE: He had no aphasia. CRANIAL NERVE EXAMINATION: II: The visual blackmon were intact to confrontation testing. III, IV & : The external ocular movements were full and the pupils 3 mm in diameter, equal, round, regular and reactive to light. V: He had normal facial sensations and the temporales, masseters, and pterygoids functioned normally. VII: He had normal facial expressions. He did have facial asymmetry related to swelling on the right side of the face. VIII: He was able to hear well bilaterally and had no nystagmus. IX: The palate moved symmetrically on phonation. X: He had no hoarseness of voice. XI: The sternocleidomastoids and trapezii functioned normally. XII: The tongue was in the midline without any fasciculations or atrophy, but he did have bite wick on his tongue. MOTOR SYSTEM: The tone was normal in all four extremities. Examination of muscle mass revealed no focal wasting. Examination of power revealed grade 5/5 power in all muscle groups tested. SENSORY EXAMINATION: He had intact sensations to pinprick, light touch, and graphesthesia. COORDINATION: He performed well on [id number] and [id number]-[id number] testing. On Romberg test he swayed. REFLEXES: 1+ and bilaterally symmetrical at the biceps, triceps, brachioradialis , and knees. Trace positive at both ankles. The plantar responses were flexor bilaterally. STANCE: He stood up independently. GAIT: He walked well independently. ABNORMAL MOVEMENTS: Tremor (7-8 Hz): G 1/4 in both upper extremities. Impression/Recommendations Diagnostic Impression 1. Mr. Roman Hussein is a 26-year-old, right-handed, [place] gentleman of [place] origin, who does have a long history of anxiety and depression, and in addition has been abusing alcohol since he was in his early 20s. He was drinking 750 mL of whiskey daily for weeks and then stopped drinking on 2016. On 06/16/2016, he was noted to have a generalized tonic-clonic seizure. He was brought into the [facility] emergency room where he had a second generalized tonic-clonic seizure. He had also been tremulous, sweaty and had a feeling of being unwell following that. 2. He feels better today. At this moment he is not paranoid, delusional or aggressive. However as per his mother his behavior has been variable. 3. The neurological examination at this time is essentially normal but he does have a swollen right cheek, a bitten tongue and globally diminished reflexes. He is also tremulous. 4. The CT scan of the brain without contrast is normal. 5. Laboratory test revealed that he was mildly anemic with a hemoglobin of 12.4. His chemistry panel revealed an elevated CK at 238. His AST and ALT were both elevated. His toxicology screen was benign and his serum alcohol on admission was <10. His urinalysis was also benign. 6. His EEG was normal in the awake and drowsy states but parts were marred by EMG, movement and electrode artifacts. 7. The patient's history and neurological examination are most compatible with two alcohol-withdrawal seizures. 8. At this point in time, he is still withdrawing from alcohol. 9. The patient does have a long history of depression, which is most probably compounding his alcoholism. Recommendations 1. Continue present management. 2. Treatment of alcohol withdrawal as per Dr. Radford and Dr. Quigley. 3. Aggressive treatment of depression. 4. No antiseizure medicine will be started. 5. Observe closely. Nasir Davies M.D., M.S.P.H. NASIR DAVIES Jun 19, 2016 14:27
[2016-06-19 16:00] VITALS: BP 100/69
--- NOTE | 2016-06-19 16:57 | Internal Med Progress Note ---
Subjective Date of Service: Jun 19, 2016 Physician Name Lori Ramirez Attending Physician Lee Quigley MD Current Medications Medications (Trade) Dose Ordered Sig/Calvin Route PRN Reason Start Time Stop Time Status Last Admin Dose Admin Acetaminophen (Tylenol) 650 mg Q4H PRN ORAL Mild Pain (Pain Scale 1-3) 06/17/16 14:00 07/17/16 13:59 Chlordiazepoxide (Librium) 25 mg Q8H ORAL 06/18/16 11:00 06/25/16 10:59 06/19/16 11:13 Clonidine HCl (Catapres) 0.1 mg Q6HR PRN ORAL For High Blood Pressure 06/17/16 20:00 07/17/16 19:59 Dextrose (Dextrose 50%) STAT PRN IV Hypoglycemia 06/17/16 14:00 07/17/16 13:59 Dextrose/ Electrolytes (D5 0.45%NS W/ KCl 20mEq) 1,000 ml @ 125 mls/hr Q8H IV 06/17/16 16:00 07/17/16 15:59 06/18/16 02:31 Diazepam (Valium) 10 mg Q3H PRN ORAL Restlessness 06/18/16 10:15 06/25/16 10:14 06/18/16 16:31 Diphenhydramine HCl (Benadryl) 50 mg EVERY 8 HOURS PRN IM Agitation 06/18/16 22:38 07/18/16 22:29 06/19/16 11:13 Folic Acid (Folate) 1 mg DAILY ORAL 06/18/16 09:00 07/18/16 08:59 06/19/16 09:54 Gabapentin (Neurontin) 100 mg Q8HR PRN ORAL For Pain 06/17/16 17:00 07/17/16 16:59 Haloperidol Lactate (Haldol) 10 mg Q8H PRN IM Agitation 06/18/16 22:30 07/18/16 22:29 06/19/16 11:16 Lorazepam (Ativan 2mg/ml 1ml) 2 mg Q8H PRN IM For Anxiety 06/19/16 06:30 06/26/16 06:29 Magnesium Hydroxide (Mom) 30 ml HSPRN PRN ORAL Constipation 06/17/16 14:00 07/17/16 13:59 Ondansetron HCl (Zofran) 4 mg Q6H PRN IVP Nausea & Vomiting 06/17/16 14:00 07/17/16 13:59 Pantoprazole (Protonix) 40 mg DAILY ORAL 06/18/16 09:00 07/18/16 08:59 06/19/16 09:54 Pentoxifylline (TRENtal) 400 mg THREE TIMES A DAY ORAL 06/19/16 13:00 07/19/16 12:59 06/19/16 13:39 Polyethylene Glycol (Miralax) 17 gm HSPRN PRN ORAL Constipation 06/17/16 14:00 07/17/16 13:59 Risperidone (RisperDAL) 2 mg BEDTIME ORAL 06/18/16 21:00 07/18/16 20:59 Thiamine HCl (Vitamin B1) 100 mg DAILY ORAL 06/18/16 09:00 07/18/16 08:59 06/19/16 09:54 Venlafaxine HCl (Effexor-XR) 225 mg DAILY ORAL 06/17/16 19:45 07/17/16 19:44 06/19/16 09:54 Allergies: Coded Allergies: No Known Allergies (Unverified , 06/16/16) UNABLE TO ASSESS (Unverified , 04/03/16) ROS Limited/Unobtainable: No Constitutional: Reports: no symptoms HEENT: Reports: no symptoms Cardiovascular: Reports: no symptoms Respiratory: Reports: no symptoms Gastrointestinal/Abdominal: Reports: no symptoms Genitourinary: Reports: no symptoms Neurologic/Psychiatric: Reports: tremors Subjective 26 YO M admitted with alcohol withdrawl seizure. Cover for [facility]-Dr Quigley. Less agitated today. Objective Last Vital Signs Date Time Temp Pulse Resp B/P Pulse Ox O2 Delivery O2 Flow Rate FiO2 06/19/16 13:39 119/93 06/19/16 12:00 96.4 112 18 99 Room Air Laboratory Tests Test 06/19/16 06:05 White Blood Count 7.2 K/UL (4.8-10.8) Red Blood Count 4.82 M/UL (4.70-6.10) Hemoglobin 15.0 G/DL (14.2-18.0) Hematocrit 45.7 % (42.0-52.0) Mean Corpuscular Volume 95 FL (80-99) Mean Corpuscular Hemoglobin 31.2 PG (27.0-31.0) H Mean Corpuscular Hemoglobin Concent 32.9 G/DL (32.0-36.0) Red Cell Distribution Width 15.2 % (11.6-14.8) H Platelet Count 151 K/UL (150-450) Mean Platelet Volume 7.8 FL (6.5-10.1) Neutrophils (%) (Auto) 61.9 % (45.0-75.0) Lymphocytes (%) (Auto) 19.7 % (20.0-45.0) L Monocytes (%) (Auto) 15.9 % (1.0-10.0) H Eosinophils (%) (Auto) 1.2 % (0.0-3.0) Basophils (%) (Auto) 1.4 % (0.0-2.0) Sodium Level 140 mEQ/L (135-145) Potassium Level 3.7 mEQ/L (3.4-4.9) Chloride Level 96 mEQ/L (98-107) L Carbon Dioxide Level 18 mEQ/L (20-30) L Anion Gap 26 (5-15) H Blood Urea Nitrogen 11 mg/dL (7-23) Creatinine 0.9 mg/dL (0.7-1.2) Estimat Glomerular Filtration Rate > 60 mL/min (>60) Glucose Level 59 mg/dL (74-106) L Calcium Level 9.4 mg/dL (8.6-10.2) Total Bilirubin 1.4 mg/dL (0.0-1.2) H Direct Bilirubin 0.3 mg/dL (0.1-0.3) Aspartate Amino Transf (AST/SGOT) 351 U/L (5-40) H Alanine Aminotransferase (ALT/SGPT) 135 U/L (3-41) H Alkaline Phosphatase 54 U/L (40-129) Total Protein 7.7 g/dL (6.6-8.7) Albumin 4.6 g/dL (3.5-5.2) Globulin 3.1 g/dL Albumin/Globulin Ratio 1.4 (1.0-2.7) Intake and Output 06/18/16 06/19/16 19:00 07:00 Intake Total 615 ml Output Total 100 ml Balance 615 ml -100 ml Intake Oral 240 ml IV Total 375 ml Output Urine Total 100 ml # Voids 1 Objective General Appearance: WD/WN, moderate distress, agitated EENT: PERRL/EOMI, normal ENT inspection, TMs normal Neck: non-tender, normal alignment, supple Cardiovascular: normal peripheral pulses, normal rate, regular rhythm, no gallop/murmur, no JVD Respiratory/Chest: chest wall non-tender, lungs clear, normal breath sounds, no respiratory distress, no accessory muscle use Abdomen: normal bowel sounds, non tender, soft, no organomegaly, no mass 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 (4) Anxiety (5) Alcohol withdrawal Assessment & Plan: Cont prn valium and neurontin for seizure precaution. (6) New onset seizure Assessment & Plan: See neurology note. Await EEG. Continue scheduled neurontin and IV ativan PRN for breakthrough seizure. Continue valium prn tremors. (7) Depression Assessment & Plan: See psychiatric eval. Status: progressing RAMIREZ,LORI Jun 19, 2016 16:57
[2016-06-19 20:00] VITALS: BP 120/70
[2016-06-20 01:00] VITALS: BP 128/82
[2016-06-20 04:00] VITALS: BP 116/82
[2016-06-20] MEDS ORDERED: DiphenhydrAMINE 50mg/ml Inj IM PRN (06:47)
[2016-06-20] MEDS ORDERED: Haloperidol 5mg/ml Inj IM PRN (06:47)
[2016-06-20] MEDS ORDERED: LORazepam Inj 2mg/ml 1ml IM PRN (06:48)
[2016-06-20 07:14] LABS: BASOPHILS % (AUTO) 1.8 % (0.0-2.0); EOSINOPHILS % (AUTO) 2.7 % (0.0-3.0); LYMPHOCYTES % (AUTO) 37.8 % (20.0-45.0); MEAN CORPUSCULAR HEMOGLOBIN 31.8 PG (27.0-31.0); MEAN CORPUSCULAR HGB CONC 33.5 G/DL (32.0-36.0); MEAN CORPUSCULAR VOLUME 95 FL (80-99); MEAN PLATELET VOLUME 6.6 FL (6.5-10.1); NEUTROPHILS % (AUTO) 41.8 % (45.0-75.0); PLATELET COUNT 163 K/UL (150-450); RED BLOOD COUNT 4.33 M/UL (4.70-6.10); RED CELL DISTRIBUTION WIDTH 15.1 % (11.6-14.8); WHITE BLOOD COUNT 6.7 K/UL (4.8-10.8)
[2016-06-20] MEDS: D5 1/2NS w/KCl 20mEq 1,000 ML IV SCH ×3 (07:30→16:12)
[2016-06-20 07:36] LABS: ALANINE AMINOTRANSFERASE 109 U/L (3-41); ALBUMIN/GLOBULIN RATIO 1.5 (1.0-2.7); ANION GAP 19 (5-15); ASPARTATE AMINO TRANSFERASE 215 U/L (5-40); CALCIUM 9.8 mg/dL (8.6-10.2); CARBON DIOXIDE 24 mEQ/L (20-30); CHLORIDE 98 mEQ/L (98-107); CREATININE 0.8 mg/dL (0.7-1.2); GLOMERULAR FILTRATION RATE > 60 mL/min (>60); HEMOLYSIS 11; POTASSIUM 3.5 mEQ/L (3.4-4.9); SODIUM 141 mEQ/L (135-145); TOTAL PROTEIN 6.9 g/dL (6.6-8.7)
[2016-06-20 07:52] LABS: BILIRUBIN,DIRECT 0.2 mg/dL (0.1-0.3)
[2016-06-20 08:18] VITALS: BP 108/75
[2016-06-20] MEDS ORDERED: Venlafaxine XR 75mg cap ORAL SCH (09:00)
[2016-06-20] MEDS ORDERED: Thiamine 100mg tab ORAL SCH (09:00)
--- NOTE | 2016-06-20 10:09 | Diagnostic Imaging Report ---
Indication: Abdominal pain Technique: Marlow-scale and duplex images of the upper abdomen were obtained Comparison: None Findings: Gallbladder is unremarkable, without stones, wall thickening, nor pericholecystic fluid. Sonographic Cordova's sign is negative. Common bile duct measures 2 mm in diameter. No intrahepatic biliary ductal dilatation. Liver demonstrates normal echogenicity, no focal abnormality. Portal vein and hepatic veins are patent.. Pancreas is unremarkable. Spleen is unremarkable. Left kidney measures 1.5 cm in length. Right kidney measures 11.3 cm length. Both kidneys demonstrate normal echogenicity. There is no hydronephrosis. No focal abnormality. . Non-aneurysmal abdominal aorta. Impression: Negative This agrees with the preliminary interpretation provided overnight by [facility] teleradiology service.
[2016-06-20 11:54] VITALS: BP 141/79
[2016-06-20] MEDS ORDERED: Milk of Magnesia 30ml Ud ORAL PRN (14:00)
[2016-06-20] MEDS ORDERED: Miralax 17gm pkt ORAL PRN (14:00)
[2016-06-20 16:00] VITALS: BP 127/77
[2016-06-20 18:15] VITALS: BP 127/77
--- NOTE | 2016-06-20 18:27 | Internal Med Progress Note ---
Subjective Date of Service: Jun 20, 2016 Physician Name Juan M Ramirez Attending Physician Lee Quigley MD Current Medications Medications (Trade) Dose Ordered Sig/Calvin Route PRN Reason Start Time Stop Time Status Last Admin Dose Admin Acetaminophen (Tylenol) 650 mg Q4H PRN ORAL Mild Pain (Pain Scale 1-3) 06/20/16 06:46 07/20/16 06:45 Clonidine HCl (Catapres) 0.1 mg Q6H PRN ORAL For High Blood Pressure 06/20/16 06:46 07/20/16 06:45 Dextrose (Dextrose 50%) STAT PRN IV Hypoglycemia 06/20/16 06:46 07/20/16 06:45 Diazepam (Valium) 10 mg Q3H PRN ORAL Restlessness 06/20/16 07:15 06/27/16 07:14 06/20/16 10:21 Diphenhydramine HCl (Benadryl) 50 mg Q8H PRN IM Agitation 06/20/16 06:47 07/20/16 06:46 Folic Acid (Folate) 1 mg DAILY ORAL 06/20/16 09:00 07/20/16 08:59 06/20/16 09:55 Gabapentin (Neurontin) 100 mg Q8H PRN ORAL For Pain 06/20/16 06:47 07/20/16 06:46 06/20/16 10:21 Haloperidol Lactate (Haldol) 10 mg Q8H PRN IM Agitation 06/20/16 06:47 07/20/16 06:46 Lorazepam (Ativan 2mg/ml 1ml) 2 mg Q8H PRN IM For Anxiety 06/20/16 06:48 06/27/16 06:47 Magnesium Hydroxide (Mom) 30 ml HSPRN PRN ORAL Constipation 06/20/16 14:00 07/20/16 13:59 Ondansetron HCl (Zofran) 4 mg Q6H PRN IVP Nausea & Vomiting 06/20/16 08:00 07/20/16 07:59 Pantoprazole (Protonix) 40 mg DAILY ORAL 06/20/16 09:00 07/20/16 08:59 06/20/16 09:54 Pentoxifylline (TRENtal) 400 mg THREE TIMES A DAY ORAL 06/20/16 09:00 07/20/16 08:59 06/20/16 18:15 Polyethylene Glycol (Miralax) 17 gm HSPRN PRN ORAL Constipation 06/20/16 14:00 07/20/16 13:59 Risperidone (RisperDAL) 2 mg BEDTIME ORAL 06/20/16 21:00 07/20/16 20:59 Thiamine HCl (Vitamin B1) 100 mg DAILY ORAL 06/20/16 09:00 07/20/16 08:59 06/20/16 09:55 Venlafaxine HCl (Effexor-XR) 225 mg DAILY ORAL 06/20/16 09:00 07/20/16 08:59 06/20/16 09:55 Allergies: Coded Allergies: No Known Allergies (Unverified , 06/16/16) UNABLE TO ASSESS (Unverified , 04/03/16) ROS Limited/Unobtainable: No Constitutional: Reports: no symptoms HEENT: Reports: no symptoms Cardiovascular: Reports: no symptoms Respiratory: Reports: no symptoms Gastrointestinal/Abdominal: Reports: no symptoms Genitourinary: Reports: no symptoms Neurologic/Psychiatric: Reports: tremors Subjective 26 YO M admitted with alcohol withdrawl seizure. Cover for [facility]-Dr Quigley. Less agitated today. Objective Last Vital Signs Date Time Temp Pulse Resp B/P Pulse Ox O2 Delivery O2 Flow Rate FiO2 06/20/16 18:15 127/77 06/20/16 16:00 97.7 100 20 100 Room Air Laboratory Tests Test 06/20/16 06:32 White Blood Count 6.7 K/UL (4.8-10.8) Red Blood Count 4.33 M/UL (4.70-6.10) L Hemoglobin 13.8 G/DL (14.2-18.0) L Hematocrit 41.1 % (42.0-52.0) L Mean Corpuscular Volume 95 FL (80-99) Mean Corpuscular Hemoglobin 31.8 PG (27.0-31.0) H Mean Corpuscular Hemoglobin Concent 33.5 G/DL (32.0-36.0) Red Cell Distribution Width 15.1 % (11.6-14.8) H Platelet Count 163 K/UL (150-450) Mean Platelet Volume 6.6 FL (6.5-10.1) Neutrophils (%) (Auto) 41.8 % (45.0-75.0) L Lymphocytes (%) (Auto) 37.8 % (20.0-45.0) Monocytes (%) (Auto) 16.0 % (1.0-10.0) H Eosinophils (%) (Auto) 2.7 % (0.0-3.0) Basophils (%) (Auto) 1.8 % (0.0-2.0) Sodium Level 141 mEQ/L (135-145) Potassium Level 3.5 mEQ/L (3.4-4.9) Chloride Level 98 mEQ/L (98-107) Carbon Dioxide Level 24 mEQ/L (20-30) Anion Gap 19 (5-15) H Blood Urea Nitrogen 16 mg/dL (7-23) Creatinine 0.8 mg/dL (0.7-1.2) Estimat Glomerular Filtration Rate > 60 mL/min (>60) Glucose Level 103 mg/dL (74-106) Calcium Level 9.8 mg/dL (8.6-10.2) Total Bilirubin 1.2 mg/dL (0.0-1.2) Direct Bilirubin 0.2 mg/dL (0.1-0.3) Aspartate Amino Transf (AST/SGOT) 215 U/L (5-40) H Alanine Aminotransferase (ALT/SGPT) 109 U/L (3-41) H Alkaline Phosphatase 51 U/L (40-129) Total Protein 6.9 g/dL (6.6-8.7) Albumin 4.2 g/dL (3.5-5.2) Globulin 2.7 g/dL Albumin/Globulin Ratio 1.5 (1.0-2.7) Intake and Output 06/19/16 06/20/16 19:00 07:00 Intake Total 240 ml Balance 240 ml Intake Oral 240 ml # Voids 1 2 Objective General Appearance: WD/WN, moderate distress, agitated EENT: PERRL/EOMI, normal ENT inspection, TMs normal Neck: non-tender, normal alignment, supple Cardiovascular: normal peripheral pulses, normal rate, regular rhythm, no gallop/murmur, no JVD Respiratory/Chest: chest wall non-tender, lungs clear, normal breath sounds, no respiratory distress, no accessory muscle use Abdomen: normal bowel sounds, non tender, soft, no organomegaly, no mass 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 (4) Anxiety (5) Alcohol withdrawal Assessment & Plan: Cont prn valium and neurontin for seizure precaution. (6) New onset seizure Assessment & Plan: See neurology note. Await EEG. Continue scheduled neurontin and IV ativan PRN for breakthrough seizure. Continue valium prn tremors. (7) Depression Assessment & Plan: See psychiatric eval. Status: progressing Assessment/Plan Discharge planning JUAN M RAMIREZ Jun 20, 2016 18:27
[2016-06-20] MEDS ORDERED: RISPERDAL1 MG/1 ML PO (19:58)
[2016-06-20] MEDS ORDERED: RESTORIL30 MG ORAL (19:59)
--- NOTE | 2016-06-20 20:23 | Neurology Progress Note ---
Interim History Interim History Interim History Mr. Jackson feels much better today. He is calm and behaving well. He is cooperative. He feels that his mind is clearing up. He has not been paranoid or delusional. He is still tremulous. He is less sweaty. He denies any new neurologic symptoms. Review of Systems Neuro Review of Systems Benign. Objective Physical Exam Last Vital Signs Date Time Temp Pulse Resp B/P Pulse Ox O2 Delivery O2 Flow Rate FiO2 06/20/16 18:15 127/77 06/20/16 16:00 97.7 100 20 100 Room Air Laboratory Tests Test 06/20/16 06:32 White Blood Count 6.7 K/UL (4.8-10.8) Red Blood Count 4.33 M/UL (4.70-6.10) L Hemoglobin 13.8 G/DL (14.2-18.0) L Hematocrit 41.1 % (42.0-52.0) L Mean Corpuscular Volume 95 FL (80-99) Mean Corpuscular Hemoglobin 31.8 PG (27.0-31.0) H Mean Corpuscular Hemoglobin Concent 33.5 G/DL (32.0-36.0) Red Cell Distribution Width 15.1 % (11.6-14.8) H Platelet Count 163 K/UL (150-450) Mean Platelet Volume 6.6 FL (6.5-10.1) Neutrophils (%) (Auto) 41.8 % (45.0-75.0) L Lymphocytes (%) (Auto) 37.8 % (20.0-45.0) Monocytes (%) (Auto) 16.0 % (1.0-10.0) H Eosinophils (%) (Auto) 2.7 % (0.0-3.0) Basophils (%) (Auto) 1.8 % (0.0-2.0) Sodium Level 141 mEQ/L (135-145) Potassium Level 3.5 mEQ/L (3.4-4.9) Chloride Level 98 mEQ/L (98-107) Carbon Dioxide Level 24 mEQ/L (20-30) Anion Gap 19 (5-15) H Blood Urea Nitrogen 16 mg/dL (7-23) Creatinine 0.8 mg/dL (0.7-1.2) Estimat Glomerular Filtration Rate > 60 mL/min (>60) Glucose Level 103 mg/dL (74-106) Calcium Level 9.8 mg/dL (8.6-10.2) Total Bilirubin 1.2 mg/dL (0.0-1.2) Direct Bilirubin 0.2 mg/dL (0.1-0.3) Aspartate Amino Transf (AST/SGOT) 215 U/L (5-40) H Alanine Aminotransferase (ALT/SGPT) 109 U/L (3-41) H Alkaline Phosphatase 51 U/L (40-129) Total Protein 6.9 g/dL (6.6-8.7) Albumin 4.2 g/dL (3.5-5.2) Globulin 2.7 g/dL Albumin/Globulin Ratio 1.5 (1.0-2.7) Neurologic Exam Objective PHYSICAL EXAMINATION: GENERAL: He is a well-developed, well-nourished, [place] gentleman lying in bed, mildly diaphoretic and mildly tremulous. HEAD: Normocephalic and atraumatic. NECK: No neck rigidity was observed. EENT EXAMINATION: Benign except for a swollen right cheek. NEUROLOGICAL EXAMINATION: MENTAL STATUS EXAMINATION: He was alert and awake. He was oriented to person, place, and time. He was able to recall 3/3 words immediately after 1 minute and after 3 minutes. He was able to remember presidents Trump through [place]. His mathematical skills were good. His visuospatial function was preserved. SPEECH: He had no dysarthria. LANGUAGE: He had no aphasia. CRANIAL NERVE EXAMINATION: II: The visual blackmon were intact to confrontation testing. III, IV & : The external ocular movements were full and the pupils 3 mm in diameter, equal, round, regular and reactive to light. V: He had normal facial sensations and the temporales, masseters, and pterygoids functioned normally. VII: He had normal facial expressions. He did have facial asymmetry related to swelling on the right side of the face. VIII: He was able to hear well bilaterally and had no nystagmus. IX: The palate moved symmetrically on phonation. X: He had no hoarseness of voice. XI: The sternocleidomastoids and trapezii functioned normally. XII: The tongue was in the midline without any fasciculations or atrophy, but he did have bite wick on his tongue. MOTOR SYSTEM: The tone was normal in all four extremities. Examination of muscle mass revealed no focal wasting. Examination of power revealed grade 5/5 power in all muscle groups tested. SENSORY EXAMINATION: He had intact sensations to pinprick, light touch, and graphesthesia. COORDINATION: He performed well on lielbw-mv-vvps and rixs-qk-uvvo testing. On Romberg test he swayed. REFLEXES: 1+ and bilaterally symmetrical at the biceps, triceps, brachioradialis , and knees. Trace positive at both ankles. The plantar responses were flexor bilaterally. STANCE: He stood up independently. GAIT: He walked well independently. ABNORMAL MOVEMENTS: Tremor (7-8 Hz): G 1/4 in both upper extremities. Impression/Recommendations Diagnostic Impression 1. Mr. Roman Hussein is a 26-year-old, right-handed, [place]er gentleman of [place] origin, who does have a long history of anxiety and depression, and in addition has been abusing alcohol since he was in his early 20s. He was drinking 750 mL of whiskey daily for weeks and then stopped drinking on 2016. On 06/16/2016, he was noted to have a generalized tonic-clonic seizure. He was brought into the [facility] emergency room where he had a second generalized tonic-clonic seizure. He had also been tremulous, sweaty and had a feeling of being unwell following that. 2. He feels better today. He is not paranoid, delusional or aggressive. 3. The neurological examination at this time is essentially normal but he does have a swollen right cheek, a bitten tongue and globally diminished reflexes. He is also tremulous. 4. The CT scan of the brain without contrast is normal. 5. Laboratory test revealed that he was mildly anemic with a hemoglobin of 12.4. His chemistry panel revealed an elevated CK at 238. His AST and ALT were both elevated. His toxicology screen was benign and his serum alcohol on admission was <10. His urinalysis was also benign. 6. His EEG was normal in the awake and drowsy states but parts were marred by EMG, movement and electrode artifacts. 7. The patient's history and neurological examination are most compatible with two alcohol-withdrawal seizures. 8. At this point in time, he is still withdrawing from alcohol. 9. The patient does have a long history of depression, which is most probably compounding his alcoholism. Recommendations 1. Continue present management. 2. Treatment of alcohol withdrawal as per Dr. Radford and Dr. Quigley. 3. Aggressive treatment of depression. 4. Observe closely. Nasir Davies M.D., M.S.P.H. NASIR DAVIES Jun 20, 2016 20:23
--- NOTE | 2016-06-20 22:34 | General Progress Note ---
Assessment/Plan Assessment/Plan Problem List: (1) New onset seizure ICD Codes: R56.9 - Unspecified convulsions SNOMED: 18793489 (2) Elevated liver function tests ICD Codes: R94.5 - Abnormal results of liver function studies SNOMED: 994569162 (3) Alcohol withdrawal ICD Codes: F10.239 - Alcohol dependence with withdrawal, unspecified SNOMED: 451402705 (4) Anxiety ICD Codes: F41.9 - Anxiety disorder, unspecified SNOMED: 83321229 Assessment/Plan fu lfts fu abd us pentoxyphyline pschy eval Subjective Allergies: Coded Allergies: No Known Allergies (Unverified , 06/16/16) UNABLE TO ASSESS (Unverified , 04/03/16) Subjective Seen this am family at bedside admits to drinking 3/4 of a 750 cc hard liquor bottle Objective Last 24 Hour Vital Signs Date Time Temp Pulse Resp B/P Pulse Ox O2 Delivery O2 Flow Rate FiO2 06/20/16 18:15 127/77 06/20/16 16:00 97.7 100 20 127/77 100 Room Air 06/20/16 13:17 141/79 06/20/16 11:54 97.9 118 19 141/79 99 Room Air 06/20/16 11:20 97.9 06/20/16 10:02 124/87 06/20/16 08:18 97.7 120 20 108/75 100 Room Air 06/20/16 04:00 97.7 112 20 116/82 100 Room Air 06/20/16 01:00 113 20 128/82 100 Room Air 06/20/16 00:00 98.2 Intake and Output 06/19/16 06/20/16 19:00 07:00 Intake Total 240 ml Balance 240 ml Intake Oral 240 ml # Voids 1 2 Laboratory Tests 06/20/16 06:32: White Blood Count 6.7, Red Blood Count 4.33L, Hemoglobin 13.8L, Hematocrit 41.1L , Mean Corpuscular Volume 95, Mean Corpuscular Hemoglobin 31.8H, Mean Corpuscular Hemoglobin Concent 33.5, Red Cell Distribution Width 15.1H, Platelet Count 163, Mean Platelet Volume 6.6, Neutrophils (%) (Auto) 41.8L, Lymphocytes (%) (Auto) 37.8, Monocytes (%) (Auto) 16.0H, Eosinophils (%) (Auto) 2.7, Basophils (%) (Auto) 1.8, Sodium Level 141, Potassium Level 3.5, Chloride Level 98, Carbon Dioxide Level 24, Anion Gap 19H, Blood Urea Nitrogen 16, Creatinine 0.8, Estimat Glomerular Filtration Rate > 60, Glucose Level 103, Calcium Level 9.8, Total Bilirubin 1.2, Direct Bilirubin 0.2, Aspartate Amino Transf (AST/SGOT) 215H, Alanine Aminotransferase (ALT/SGPT) 109H, Alkaline Phosphatase 51, Total Protein 6.9, Albumin 4.2, Globulin 2.7, Albumin/Globulin Ratio 1.5 Height (Feet): 5 Height (Inches): 5.00 Weight (Pounds): 130 Objective WDWN NCAT Supple CTA RRR soft ND NT no edema non focal AISLINN CASTILLO Jun 20, 2016 22:34
--- NOTE | 2016-06-21 11:38 | Discharge Summary ---
Discharge Summary Hospital Course Date of Admission Jun 16, 2016 at 22:40 Date of Discharge Jun 20, 2016 at 20:30 Admitting Diagnosis uncontrolled seizures - new onset HPI Roman Jackson is a 26 year old male who was admitted on Jun 16, 2016 at 22:40 for Uncontrolled Seizures-New Onset Hospital Course dc summary #[id number] Discharge Medications Continued Medications: Buspirone Hcl* (Buspar*) 10 Mg Tablet 10 MG ORAL THREE TIMES A DAY, #15 TAB 0 Refills Venlafaxine Hcl* (Effexor*) 25 Mg Tablet 25 MG ORAL THREE TIMES A DAY, TAB Discharge Condition Upon Discharge: stable Discharge Disposition Patient was discharged to Home (01) Discharge Diagnoses: Discharge Instructions Discharge Instructions Special Instructions I have been assigned to complete a D/C Summary on this account. I was not involved in the patient management Leah Qureshi NP (Vanchtein) Jun 21, 2016 11:38
--- NOTE | 2016-06-21 11:41 | Cardiology Report ---
APPROVED REPORT EKG Measurement Heart [id number] OR [id number] Sinus tachycardia Otherwise normal ECG
--- NOTE | 2016-06-21 21:39 | Progress Note ---
DATE: 06/20/2016 SUBJECTIVE: The patient's mom was at bedside. I discussed the case with her and the patient at length. The patient presents with anxiety and depressed mood, however, the symptoms are significantly improved. He was not hostile or combative during the evaluation, calmer, and more cooperative. MENTAL STATUS EXAM: Alert and oriented x3. Mood was depressed. Affect was constricted. Congruent mood. Thought process is concrete. Thought content, no suicidal or homicidal ideation. ASSESSMENT: 1. Psychotic disorder. 2. Depression. PLAN: 1. The patient will be discharged on risperidone and Effexor. Prescription was written and given to him. 2. Provide the patient with reality orientation. 3. Encourage the patient to refrain from drinking alcohol. Nasreen Houser M.D. DR: MIA JOB#: [id number] CC:
--- NOTE | 2016-06-21 21:39 | Progress Note ---
DATE: 06/19/2016 SUBJECTIVE: The patient still continues to be hostile, agitated, and needed a cocktail administration of antipsychotics and anxiolytics. He is not cooperative with the staff. Mother is at bedside. MENTAL STATUS EXAMINATION: The patient is alert and oriented x3, combative, and hostile. Mood is anxious and agitated. Affect is constricted. Congruent mood. Thought process is concrete. Thought content, no suicidal or homicidal ideation, however, is severely agitated. ASSESSMENT: 1. Alcohol withdrawal. 2. Psychosis. PLAN: 1. The patient will be continued on risperidone as well as Haldol IM, Benadryl IM, and Ativan IM. 2. Continue Effexor. 3. Provide the patient with supportive therapy and reality orientation. Nasreen Houser M.D. DR: MIA JOB#: [id number] CC:
--- NOTE | 2016-06-22 04:58 | Discharge Summary 2 SIG ---
DATE OF ADMISSION: 06/16/2016 DATE OF DISCHARGE: 06/20/2016 REASON FOR ADMISSION: 26-year-old male presented to emergency room after having a seizure. The patient was withdrawing from the alcohol. He apparently was sober since April, but relapsed after his sponsor relapsed .Mother reported seeing him drinking whisky yesterday He denied headaches,body pain. He does admit to shaking and tremulousness. Blood sugar was stable in the field. He never had seizure before. No nausea. No vomiting. No hematemesis. No melena. Recently, he did not go to Alcoholics Anonymous after his sponsor relapsed. He also complained of depression, but denied suicidal ideation. Mother stated that the patient was severely depressed. Workup in the emergency room revealed negative toxicology screen. The patient received Ativan . EKG showed sinus tachycardia with heart rate of 137. Chest x-ray was negative for any acute cardiopulmonary disease. CT of the head was negative for any acute intracranial pathology. Due to the concern of possible the delirium tremors, the patient was admitted to telemetry. The patient had two boluses of IV fluids in the emergency room and another Ativan. Labs were essentially unremarkable. ADMITTING DIAGNOSES: 1. New-onset of seizure. 2. Alcohol withdrawal. 3. Depression. 4. Elevated transaminase. HOSPITAL STAY: The patient was admitted to telemetry floor. The patient was started on IV banana bag with folic acid, thiamine , multivitamin and magnesium. Electrolytes were closely monitored and were stable. Neurology consult was requested. Neurologist stated that the seizures were likely induced by alcohol, recommended no anticonvulsant at this time. Recommended Librium as needed and EEG. Subsequently, EEG was done, which was a normal awake and drowsy EEG. Per neurologist, continue present management and treatment of alcohol withdrawal. No antiseizure medication should be started and close observation was continued. Seizure precaution were maintained. Psychiatrist seen the patient and diagnosed the patient with major depression. Psychiatric medication regimen was readjusted. LFTs were closely monitored, trending down. GI seen the patient for elevated transaminase, probably related to alcohol dependency and alcohol withdrawal. The patient was started on Trental and recommended abdominal ultrasound. Abdominal ultrasound was negative. LFT trending down. The patient was afebrile, less depressed, and tremors and nervousness resolved. The patient was counseled on abstinence from alcohol and urged to continue with the Alcoholics Anonymous meetings as before. DISCHARGE DIAGNOSES: 1. Alcohol dependence. 2. Alcohol withdrawal seizure. 3. Alcohol withdrawal syndrome with anxiety, diaphoresis, and tremulousness. 4. Major depression. 5. Elevated transaminase. DISCHARGE MEDICATIONS: See medication reconciliation list. DISCHARGE INSTRUCTIONS: The patient to follow up with the primary medical doctor. Patient was urged to continue Alcoholics Anonymous meetings. Lee Quigley M.D. I have been assigned to dictate discharge summary on this account and I was not involved in the patient's management. Leah GreenMount Sinai Health SystemGiovanny N.PMaggy DR: UMM JOB#: [id number] CC: MIGUEL
== END 2016-06-20 20:30 | disposition home or self-care (01) | DRG 897 ==
LOC: EDBD 20:53 → EMR 21:44 → 2E 22:40 → EDBEDREQ 06-17 10:18 → 2E 06-18 18:40 → 4E 06-20 06:33
DX: F10.239 Alcohol dependence with withdrawal, unspecified (principal); M62.82 Rhabdomyolysis; G40.89 Other seizures; F32.9 Major depressive disorder, single episode, unspecified; F41.9 Anxiety disorder, unspecified; R25.1 Tremor, unspecified; F29 Unspecified psychosis not due to a substance or known physiological condition
CPT/HCPCS: 36415; 70450; 71010; 76700; 80053; 80300; 80329; 81003; 82248; 82550; 83735; 84100; 85025; 85610; 85730; 93005; 95819